=== PATIENT | male | born 1980 | race Hispanic/Latino ===

== ENCOUNTER 2019-05-12 20:29 | Emergency (ER) | payer OTHER ==
[2019-05-12] MEDS ORDERED: NA CHLORIDE 0.9% 1,000 ML ONE (20:55)
[2019-05-12 21:24] LABS: Absolute Lymphocytes (CBC) 2.6 K/uL (0.7-4.9); Basophils % 0.7 % (0-1.3); Lymphocytes % 32.1 % (15.3-44.8); MPV 10.3 fL (7.6-11.3); RBC Red Blood Cell Count 5.29 M/uL (4.33-5.43)
[2019-05-12 22:09] LABS: Urine Blood NEGATIVE (NEG); Urine Glucose NEGATIVE (NEG); Urine Protein NEGATIVE (NEG); Urine Specific Gravity 1.025 (1.005-1.030); Urine pH 5.5 (5.0-7.0)
[2019-05-12 22:12] LABS: Protime INR 1.04
[2019-05-12 22:32] LABS: ALT/SGPT 30 U/L (12-78); Albumin 3.8 g/dL (3.4-5.0); Alkaline Phosphatase 83 U/L (45-117); BUN Blood Urea Nitrogen 10 mg/dL (7-18); Bicarbonate 24 mmol/L (21-32); Bilirubin Direct < 0.1 mg/dL (0-0.2); Bilirubin Total 0.4 mg/dL (0.2-1.0); Glucose Level 146 mg/dL (74-106); NT PRO-BNP 52 pg/mL (<125); Protein, Total 7.8 g/dL (6.4-8.2); Sodium Level 142 mmol/L (136-145); Troponin (Emerg Dept Use Only) < 0.02 ng/mL (0.0-0.045)
[2019-05-12 22:33] LABS: AST/SGOT 19 U/L (15-37)
--- NOTE | 2019-05-12 22:51 | EDPHYS ---
Physician Documentation [facility] Name: Karan Arita Age: 38 yrs Sex: Male : 1980 Arrival Date: 05/12/2019 Time: 20:32 Bed 28 Private MD: ED Physician Bob Carbone HPI: 05/12 21:13 This 38 yrs old Male presents to ER via EMS with complaints of weakness and gerson dizzinrss. 21:13 The patient presents with dizziness, feeling faint, generalized weakness. Onset: The gerson symptoms/episode began/occurred just prior to arrival. Context: occurred at work. Modifying factors: The symptoms are alleviated by nothing, the symptoms are aggravated by nothing. Associated signs and symptoms: Pertinent positives: headache, nausea, near-syncope. Severity of symptoms: At their worst the symptoms were mild moderate in the emergency department the symptoms have improved moderately. Patient's baseline: Neuro: alert and fully oriented. Historical: - Allergies: 21:27 No Known Allergies; rv - Home Meds: 21:27 TRULICITY [Active]; rv - PMHx: 21:27 None; rv - PSHx: 21:27 C4-C6 FUSION; ROTATOR CUFF REPAIR; NECK SURGERY; Tonsillectomy; rv - Immunization history:: Adult Immunizations up to date. - Social history:: Smoking status: Patient/guardian denies using tobacco, never smoked. - Family history:: not pertinent. - Ebola Screening: : No symptoms or risks identified at this time. ROS: 21:13 Constitutional: Negative for fever, chills, and weight loss, Eyes: Negative for injury, gerson pain, redness, and discharge, ENT: Negative for injury, pain, and discharge, Neck: Negative for injury, pain, and swelling, Cardiovascular: Negative for chest pain, palpitations, and edema, Respiratory: Negative for shortness of breath, cough, wheezing, and pleuritic chest pain, Abdomen/GI: Negative for abdominal pain, nausea, vomiting, diarrhea, and constipation, Back: Negative for injury and pain, : Negative for injury, bleeding, discharge, and swelling, MS/Extremity: Negative for injury and deformity, Skin: Negative for injury, rash, and discoloration, Psych: Negative for depression, anxiety, suicide ideation, homicidal ideation, and hallucinations, Allergy/Immunology: Negative for hives, rash, and allergies, Endocrine: Negative for neck swelling, polydipsia, polyuria, polyphagia, and marked weight changes, Hematologic/Lymphatic: Negative for swollen nodes, abnormal bleeding, and unusual bruising. 21:13 Neuro: Positive for dizziness, headache. Exam: 21:13 Constitutional: This is a well developed, well nourished patient who is awake, alert, gerson and in no acute distress. Head/Face: Normocephalic, atraumatic. Eyes: Pupils equal round and reactive to light, extra-ocular motions intact. Lids and lashes normal. Conjunctiva and sclera are non-icteric and not injected. Cornea within normal limits. Periorbital areas with no swelling, redness, or edema. ENT: Nares patent. No nasal discharge, no septal abnormalities noted. Tympanic membranes are normal and external auditory canals are clear. Oropharynx with no redness, swelling, or masses, exudates, or evidence of obstruction, uvula midline. Mucous membranes moist. Neck: Trachea midline, no thyromegaly or masses palpated, and no cervical lymphadenopathy. Supple, full range of motion without nuchal rigidity, or vertebral point tenderness. No Meningismus. Chest/axilla: Normal chest wall appearance and motion. Nontender with no deformity. No lesions are appreciated. Cardiovascular: Regular rate and rhythm with a normal S1 and S2. No gallops, murmurs, or rubs. Normal PMI, no JVD. No pulse deficits. Respiratory: Lungs have equal breath sounds bilaterally, clear to auscultation and percussion. No rales, rhonchi or wheezes noted. No increased work of breathing, no retractions or nasal flaring. Abdomen/GI: Soft, non-tender, with normal bowel sounds. No distension or tympany. No guarding or rebound. No evidence of tenderness throughout. Back: No spinal tenderness. No costovertebral tenderness. Full range of motion. Male : Normal genitalia with no discharge or lesions. Skin: Warm, dry with normal turgor. Normal color with no rashes, no lesions, and no evidence of cellulitis. MS/ Extremity: Pulses equal, no cyanosis. Neurovascular intact. Full, normal range of motion. Neuro: Awake and alert, GCS 15, oriented to person, place, time, and situation. Cranial nerves II-XII grossly intact. Motor strength 5/5 in all extremities. Sensory grossly intact. Cerebellar exam normal. Normal gait. Psych: Awake, alert, with orientation to person, place and time. Behavior, mood, and affect are within normal limits. 22:33 Musculoskeletal/extremity: DVT Exam: No signs of deep vein thrombosis. no pain, no gerson swelling, no tenderness, negative Homans' sign noted on exam, no appreciated bluish discoloration, no erythema, no increased warmth. 22:33 Neck: ROM/movement: is normal, no acute changes, Meningeal signs: are not present, [facility] Kernig's sign is negative, Brudzinski's sign is negative. Vital Signs: 20:37 BP 135 / 109; Pulse 100; Resp 17; Temp 98.7; Pulse Ox 100% on R/A; Weight 106.14 kg; rv Height 5 ft. 10 in. (177.80 cm); 22:04 BP 116 / 79; Pulse 98; Resp 18; Pulse Ox 100% on R/A; mg2 22:59 BP 122 / 99; Pulse 93; Resp 18; Pulse Ox 100% on R/A; mg2 23:54 BP 125 / 95; Pulse 89; Resp 15; Pulse Ox 100% on R/A; rv 20:37 Body Mass Index 33.58 (106.14 kg, 177.80 cm) rv MDM: 20:48 Patient medically screened. [facility] 22:33 Data reviewed: vital signs, nurses notes, lab test result(s), EKG, radiologic studies, [facility] CT scan, plain films. 05/12 20:50 Order name: Basic Metabolic Panel; Complete Time: 22:48 [facility] 05/12 20:50 Order name: CBC with Diff; Complete Time: 22:15 [facility] 05/12 20:50 Order name: LFT's; Complete Time: 22:48 [facility] 05/12 20:50 Order name: Magnesium; Complete Time: 22:48 [facility] 05/12 20:50 Order name: NT PRO-BNP; Complete Time: 22:48 [facility] 05/12 20:50 Order name: PT-INR; Complete Time: 22:32 [facility] 05/12 20:50 Order name: Troponin (emerg Dept Use Only); Complete Time: 22:48 [facility] 05/12 20:50 Order name: XRAY Chest (1 view); Complete Time: 23:43 [facility] 05/12 20:50 Order name: EKG; Complete Time: 21:22 [facility] 05/12 20:50 Order name: Cardiac monitoring; Complete Time: 20:52 [facility] 05/12 20:50 Order name: CT Head Brain wo Cont [facility] 05/12 22:03 Order name: Urine Dipstick--Ancillary (enter results); Complete Time: 22:15 or 05/12 20:50 Order name: EKG - Nurse/Tech; Complete Time: 20:52 [facility] 05/12 20:50 Order name: IV Saline Lock; Complete Time: 22:03 [facility] 05/12 20:50 Order name: Labs collected and sent; Complete Time: 20:52 [facility] 05/12 20:50 Order name: O2 Per Protocol; Complete Time: 20:53 [facility] 05/12 20:50 Order name: O2 Sat Monitoring; Complete Time: 20:53 [facility] 05/12 20:50 Order name: Urine Dipstick-Ancillary (obtain specimen); Complete Time: 22:03 [facility] Administered Medications: 21:03 Drug: NS 0.9% 500 ml Route: IV; Rate: bolus; Site: right antecubital; mg2 22:59 Follow up: Response: No adverse reaction; IV Status: Completed infusion; IV Intake: mg2 500ml 22:03 Drug: NS 0.9% 1000 ml Route: IV; Rate: 125 ml/hr; Site: right antecubital; mg2 Point of Care Testing: Blood Glucose: 20:44 Blood Glucose: 164 mg/dL; mg2 Ranges: Critical Glucose Levels:Adult <50 mg/dl or >400 mg/dl <40 mg/dl or >180 mg/dl Disposition: 05/12/19 22:50 Discharged to Home. Impression: Dizziness and giddiness, Weakness, Type 1 diabetes mellitus. - Condition is Stable. - Discharge Instructions: Type 2 Diabetes Mellitus, Diagnosis, Adult, Dizziness, Weakness, Weakness, [id number], Type 2 Diabetes Mellitus, Diagnosis, Adult, [id number], Dizziness, [id number]-mh-[id number], Type 2 Diabetes Mellitus, Self Care, Adult, Type 2 Diabetes Mellitus, Self Care, Adult, Ysmf-[id number]-[id number]. - Medication Reconciliation Form, Thank You Letter, Antibiotic Education, Prescription Opioid Use form. - Follow up: Private Physician; When: 1 - 2 days; Reason: Recheck today's complaints, Continuance of care, Re-evaluation by your physician. - Problem is new. - Symptoms have improved. Signatures: Dispatcher [employer] EDBob Gaviria MD MD cha Gardose, Michele, RN RN Darius Hudson RN RN rv Corrections: (The following items were deleted from the chart) 23:54 22:50 05/12/2019 22:50 Discharged to Home. Impression: Dizziness and giddiness; rv Weakness; Type 1 diabetes mellitus. Condition is Stable. Discharge Instructions: Type 2 Diabetes Mellitus, Diagnosis, Adult, Dizziness, Weakness, Weakness, Pmxt-[id number], Type 2 Diabetes Mellitus, Diagnosis, Adult, Xlmt-mg-Cpxg, Dizziness, Lnwe-nc-Wyap, Type 2 Diabetes Mellitus, Self Care, Adult, Type 2 Diabetes Mellitus, Self Care, Adult, Piwv-ta-Kper. Forms are Medication Reconciliation Form, Thank You Letter, Antibiotic Education, Prescription Opioid Use. Follow up: Private Physician; When: 1 - 2 days; Reason: Recheck today's complaints, Continuance of care, Re-evaluation by your physician. Problem is new. Symptoms have improved. gerson
--- NOTE | 2019-05-12 22:51 | ER ---
Nurse's Notes [facility] Name: Karan Arita Age: 38 yrs Sex: Male : 1980 Arrival Date: 05/12/2019 Time: 20:32 Bed 28 Private MD: Diagnosis: Dizziness and giddiness;Weakness;Type 1 diabetes mellitus Presentation: 05/12 20:34 Presenting complaint: EMS states: PATIENT FELT DIZZY SINCE 330 PM TODAY. AFTER TAKING A rv SHOWER, FELT DIZZY AND HAD TUNNEL VISION. Transition of care: patient was not received from another setting of care. Onset of symptoms was May 12, 2019 at 15:30. Risk Assessment: Do you want to hurt yourself or someone else? Patient reports no desire to harm self or others. Initial Sepsis Screen: Does the patient meet any 2 criteria? No. Patient's initial sepsis screen is negative. Does the patient have a suspected source of infection? No. Patient's initial sepsis screen is negative. Care prior to arrival: None. 20:34 Method Of Arrival: EMS: [facility] rv 20:34 Acuity: JAMES 3 rv Triage Assessment: 21:27 General: Appears in no apparent distress. comfortable, Behavior is calm, cooperative. rv Pain: Denies pain. Historical: - Allergies: 21:27 No Known Allergies; rv - Home Meds: 21:27 TRULICITY [Active]; rv - PMHx: 21:27 None; rv - PSHx: 21:27 C4-C6 FUSION; ROTATOR CUFF REPAIR; NECK SURGERY; Tonsillectomy; rv - Immunization history:: Adult Immunizations up to date. - Social history:: Smoking status: Patient/guardian denies using tobacco, never smoked. - Family history:: not pertinent. - Ebola Screening: : No symptoms or risks identified at this time. Screenin:08 Abuse screen: Denies threats or abuse. Denies injuries from another. Nutritional mg2 screening: No deficits noted. Tuberculosis screening: No symptoms or risk factors identified. Fall Risk IV access (20 points). Assessment: 21:27 General: Appears in no apparent distress. comfortable, Behavior is calm, cooperative. rv Pain: Denies pain. Neuro: Level of Consciousness is awake, alert, obeys commands, Oriented to person, place, time, situation, Reports dizziness. Cardiovascular: Patient's skin is warm and dry. Respiratory: Airway is patent. GI: No signs and/or symptoms were reported involving the gastrointestinal system. : No signs and/or symptoms were reported regarding the genitourinary system. EENT: No signs and/or symptoms were reported regarding the EENT system. Derm: Skin is intact. Musculoskeletal: No signs and/or symptoms reported regarding the musculoskeletal system. 22:06 Reassessment: Patient appears in no apparent distress at this time. Patient and/or mg2 family updated on plan of care and expected duration. Pain level reassessed. Patient is alert, oriented x 3, equal unlabored respirations, skin warm/dry/pink. 23:06 Reassessment: patient up for discharge after ct result is back and is negative. mg2 Vital Signs: 20:37 BP 135 / 109; Pulse 100; Resp 17; Temp 98.7; Pulse Ox 100% on R/A; Weight 106.14 kg; rv Height 5 ft. 10 in. (177.80 cm); 22:04 BP 116 / 79; Pulse 98; Resp 18; Pulse Ox 100% on R/A; mg2 22:59 BP 122 / 99; Pulse 93; Resp 18; Pulse Ox 100% on R/A; mg2 23:54 BP 125 / 95; Pulse 89; Resp 15; Pulse Ox 100% on R/A; rv 20:37 Body Mass Index 33.58 (106.14 kg, 177.80 cm) rv ED Course: 20:32 Patient arrived in ED. mg2 20:34 Darius Guillen, ARASH is Primary Nurse. rv 20:37 Triage completed. rv 20:47 Bob Carbone MD is Attending Physician. gerson 21:03 No provider procedures requiring assistance completed. Inserted saline lock: 22 gauge mg2 in right antecubital area, using aseptic technique. Blood collected. 21:08 Patient has correct armband on for positive identification. mg2 21:29 Patient placed in the treatment room, on a stretcher, on pulse oximetry, Patient rv notified of wait time. 21:36 XRAY Chest (1 view) In Process Unspecified. EDMS 21:51 CT completed. Patient tolerated procedure well. Patient moved to CT via stretcher. Patient moved back from CT. 21:52 CT Head Brain wo Cont In Process Unspecified. EDMS 23:53 IV discontinued, intact, bleeding controlled, No redness/swelling at site. Pressure rv dressing applied. Administered Medications: 21:03 Drug: NS 0.9% 500 ml Route: IV; Rate: bolus; Site: right antecubital; mg2 22:59 Follow up: Response: No adverse reaction; IV Status: Completed infusion; IV Intake: mg2 500ml 22:03 Drug: NS 0.9% 1000 ml Route: IV; Rate: 125 ml/hr; Site: right antecubital; mg2 Point of Care Testing: Blood Glucose: 20:44 Blood Glucose: 164 mg/dL; mg2 Ranges: Intake: 22:59 IV: 500ml; Total: 500ml. mg2 Outcome: 22:50 Discharge ordered by . gerson 23:53 Discharged to home ambulatory, with family. rv 23:53 Condition: good 23:53 Discharge instructions given to patient, Instructed on discharge instructions, follow up and referral plans. Demonstrated understanding of instructions, follow-up care. 23:54 Patient left the ED. rv Signatures: Dispatcher [employer] EDMS Bob Carbone MD MD cha Hagler, Ervin eh Gardose, Michele, ARASH RN mg2 Darius Guillen RN RN rv Corrections: (The following items were deleted from the chart) 22:06 22:04 BP 135 / 101; Pulse 98bpm; Resp 18bpm; Pulse Ox 100% RA; mg2 mg2
--- NOTE | 2019-05-12 23:01 | RAD REPORT ---
EXAM DESCRIPTION: RAD - Chest Single View - 05/12/2019 9:21 pm CLINICAL HISTORY: COUGH Chest pain. COMPARISON: Chest Pa And Lat (2 Views) dated 01/23/2018 FINDINGS: Portable technique limits examination quality. The lungs are grossly clear. The heart is upper limit of normal in size. No displaced fractures. IMPRESSION: No acute intrathoracic process suspected.
[2019-05-13 00:30] VITALS: TEMP 98.7; O2SAT 100
[2019-05-13 00:34] VITALS: BP 125/95
--- NOTE | 2019-05-13 11:09 | EKG ---
Test Date: 2019-05-12 Test Time: 20:35:02 [address] Engineer: GINA MEASUREMENT RESULTS: Intervals: Rate: 102 MI: 136 QRSD: 86 QT: 336 QTc: 437 [place]: P: 32 MI: 136 QRS: 28 T: 48 INTERPRETIVE STATEMENTS: Sinus tachycardia Otherwise normal ECG Compared to ECG 03/02/2015 11:35:06 Sinus rhythm no longer present Electronically Signed On 05-13-19 11:06:19 CDT by Saurabh Hayes
--- NOTE | 2019-05-14 14:01 | RAD REPORT ---
EXAM DESCRIPTION: Head Brain Wo Cont CLINICAL HISTORY: 38 years Male, DIZZINESS TECHNIQUE: 5 mm axial images were obtained along with 3 mm reformatted coronal and sagittal images. This exam was performed according to our departmental dose-optimization program, which includes autom ated exposure control, adjustment of the mA and/or kV according to patient size and/or use of iterati ve reconstruction technique. COMPARISON: None. FINDINGS: No acute abnormal extracerebral fluid collections are demonstrated. The cortical sulci, ventricles, and cisterns are within normal limits. There are no areas of altered attenuation identified to suggest acute hemorrhage, infarction, or mass lesion. The visualized portions of the paranasal sinuses and mastoid air cells are clear. IMPRESSION: 1. Normal study. Electronically signed by: Berny Dunne MD 05/12/2019 9:45 PM CDT Due to temporary technical issues with the PACS/Fluency reporting system, reports are being signed by the in house radiologist as a courtesy to ensure prompt reporting. The interpreting radiologist is f ully responsible for the content of the report.
== END 2019-05-12 23:54 | disposition home or self-care (01) ==
LOC: ER 20:29
DX: R53.1 Weakness (principal); E10.9 Type 1 diabetes mellitus without complications
CPT/HCPCS: 96361; 93005; 85025; 80048; 36415; 83735; 85610; 82962; 80076; 81003; 84484; 83880; 70450; 71045; 96360; 99285; J7030

== ENCOUNTER 2023-04-05 12:03 | Emergency (ER) | payer OTHER ==
--- OUTSIDE RECORDS SUMMARY | 2023-04-05 12:07 | XMS REPORT | Continuity of Care Document ---
:1980 Author Organization [facility] t Address [address] [place] [address] [address] [place] [address] Care Team Providers Name Role Phone Jennifer Galeano NP Primary Care Physician Krysta Attending Clinician Unavailable Woo Gutierrez Attending Clinician Unavailable Woo Gutierrez Attending Clinician [phone] Krysta Admitting Clinician Unavailable KNOW, DOES_NOT Admitting Clinician Unavailable Payers Payer Name Policy Type Policy Number Effective Date Expiration Date Marisela BOURGEOIS (POS) [id number] 2022 00:00:00 Problems Condition Condition Condition Status Onset Resolution Last Treating Co mments Source Name Details Category Date Date Treatment Clinician Date Tendonitis Tendonitis Problem Active A zalea of right of Right 1-04 Orthop e shoulder Shoulder 00:00: dic 00 Sports Medicin e Adhesive Adhesive Problem Active 2021-09 Azale a capsulitis Capsulitis 1-28 Or thope of right of Right 00:00: dic shoulder Shoulder 00 Sports Medicin e Full Full Problem Active Monae thickness Thickness 7-18 Orth ope rotator Rotator 00:00: dic cuff tear Cuff Tear 00 Spor ts Medicin e Arthritis Arthritis Problem Active Aza marla of of 5-10 Orthope acromiocla Acromiocla 00:00: di c vicular vicular 00 Sports joint Joint Medicin e Biceps Biceps Problem Active Monae tendinitis Tendinitis 5-10 Or thope 00:00: dic 00 Sports Medicin e Partial Partial Problem Active Monae thickness Thickness 5-10 Orth ope rotator Rotator 00:00: dic cuff tear Cuff Tear 00 Spor ts Medicin e Allergies, Adverse Reactions, Alerts Allergy Allergy Status Severity Reaction(s) Onset Inactive Treating Comm ents Source Name Type Date Date Clinician No Known DA Active [facility] [place] [facility] 00:[facility]: [facility] 00 dic [facility] No Known DA Active [facility] [place] [facility] 00:00: Orthope s 00 dic [facility]ospita [facility] No Known DA Active [facility] 7[facility]06 [place] [facility]ie 00:00: Orthope s 00 dic Hospita l Family History Family Member Diagnosis Comments Start Date Stop Date Source Natural father Diabetes [facility] Natural mother Diabetes [facility] Social History Social Habit Start Date Stop Date Quantity Comments Source History [facility] St[facility] Drinks Hospit al History [facility] Gender identity [facility] Sexual orientation [facility] History SDOH 2019-07-20 2019-07-20 1 [facility] Alcohol Frequency 00:00:00 00:00:00 Hospita l Alcohol intake 2019-07-20 2019-07-20 Lifetime [facility] 00:00:00 00:00:00 non-drinker Hospital (finding) History of Social 2019-07-20 2019-07-[address] function 00:00:00 00:00:00 Hospital Tobacco use and 2019-06-21 2019-06-21 Smokeless Confucianist exposure 00:00:00 00:00:00 tobacco non-user Hospital Sex Assigned At [birth year] [facility] 00:00:00 00:00:00 Hospital Smoking Status Start Date Stop Date Source Never Smoker [facility] Medications Ordered Filled Start Stop Current Ordering Indication Dosage Frequency Signature Comments Components Source Medication Medication Date Date Medication? Clinician (SIG) Name Name dulaglutide 2018-09 Yes [facility] (TRULICITY) 09-19 st 0.75 mg/0.5 10:20: Hospit a mL pen 00 l injector linagliptin 2018-09 Yes [facility] -metformin 09-19 ([place] 10:20: Hospit a ) 2.5-1,000 00 l mg tablet dulaglutide 2018-09 Yes [facility] (TRULICITY) 1-19 st 0.75 mg/0.5 10:20: Hospit a mL pen 00 l injector linagliptin 2018-09 Yes [facility] -metformin -19 st ([place] 10:20: Hospit a ) 2.5-1,000 00 l mg tablet HYDROcodone Yes Take 1 Meth roxann -acetaminop 9-[address] (NORCO) 00:00: every 12 Ho spita 7.5-325 mg 00 hours by l per tablet oral route for 30 days. HYDROcodone Yes Take 1 Meth roxann -acetaminop 9-[address] hen (NORCO) 00:00: every 12 Ho spita 7.5-325 mg 00 hours by l per tablet oral route for 30 days. DULoxetine Yes 30mg QD Take 30 mg M ethodi (CYMBALTA) 9-[address] 30 MG 00:00: daily. Hospita capsule 00 l DULoxetine Yes 30mg QD Take 30 mg M ethodi (CYMBALTA) 9-[address] 30 MG 00:00: daily. Hospita capsule 00 l tiZANidine Yes 4mg QD Take 4 mg Me thodi (ZANAFLEX) 8-[address] 4 MG tablet 00:00: daily. Hosp jude 00 l tiZANidine Yes 4mg QD Take 4 mg Me thodi (ZANAFLEX) 8-[address] 4 MG tablet 00:00: daily. Hosp jude 00 l ONETOUCH Yes USE TO [facility] ULTRA BLUE 8-[address] TEST STRIP 00:00: BLOOD Hospit a strip test 00 SUGAR l strips DAILY ONETOUCH Yes USE TO [facility] ULTRA BLUE 8-[address] TEST STRIP 00:00: BLOOD Hospit a strip test 00 SUGAR l strips DAILY tramadol tramadol No tramadol Aza marla 37.5 37.5 37.5 Orthope mg-acetamin mg-acetamin mg-acetami dic ophen 325 ophen 325 nophen 325 Sports mg tablet mg tablet mg tablet Medicin Take 1 Take 1 Take 1 e tablet by tablet by tablet by mouth every mouth every mouth 4-6 hours 4-6 hours every 4-6 as needed as needed hours as for pain for pain needed for pain Trulicity Trulicity No Trulicity Monae 0.75 mg/0.5 0.75 mg/0.5 0.75 O rthope mL mL mg/0.5 mL dic subcutaneou subcutaneou subcutaneo Sports s pen s pen us pen Medicin injector injector injector e INJECT 0.75 INJECT 0.75 INJECT MG UNDER MG UNDER 0.75 MG THE SKIN THE SKIN UNDER THE PER WEEK. PER WEEK. SKIN PER WEEK. bromphenira bromphenira No bromphenir Monae mine-pseudo mine-pseudo amine-pseu Orthope ephedrine-D ephedrine-D doephedrin dic M 2 mg-30 M 2 mg-30 e-DM 2 Spo rts mg-10 mg/5 mg-10 mg/5 mg-30 Me dicin mL oral mL oral mg-10 mg/5 e syrup TAKE syrup TAKE mL oral 10 ML BY 10 ML BY syrup TAKE MOUTH 3 MOUTH 3 10 ML BY (THREE) (THREE) MOUTH 3 TIMES A DAY TIMES A DAY (THREE) IF NEEDED IF NEEDED TIMES A FOR FOR DAY IF CONGESTION CONGESTION NEEDED FOR OR COUGH. OR COUGH. CONGESTION OR COUGH. Celebrex Celebrex No 1capsul Celebrex Monae 200 mg 200 mg e(s) 200 mg Orthope capsule capsule capsule dic Take 1 Take 1 Take 1 Sports capsule by capsule by capsule by Medicin oral route oral route oral route e in the in the in the morning. morning. morning. cephalexin cephalexin No cephalexin Monae 500 mg 500 mg 500 mg [facility] capsule capsule capsule dic TAKE 1 TAKE 1 TAKE 1 Sports CAPSULE BY CAPSULE BY CAPSULE BY Medicin MOUTH TWICE MOUTH TWICE MOUTH e A DAY FOR A DAY FOR TWICE A 10 DAYS 10 DAYS DAY FOR 10 DAYS cyclobenzap cyclobenzap No cyclobenza Monae rine 10 mg rine 10 mg aster 10 Orthope tablet TAKE tablet TAKE mg tablet dic 1 TABLET BY 1 TABLET BY TAKE 1 Sports MOUTH EVERY MOUTH EVERY TABLET BY Medicin 8 HOURS 8 HOURS MOUTH e NEEDED FOR NEEDED FOR EVERY 8 PAIN PAIN HOURS NEEDED FOR PAIN diazepam 10 diazepam 10 No diazepam Monae mg tablet mg tablet 10 mg Orth ope TAKE 1 TAKE 1 tablet dic TABLET BY TABLET BY TAKE 1 Spo rts MOUTH 30 MOUTH 30 TABLET BY Me dicin MINS PRIOR MINS PRIOR MOUTH 30 e TO MRI TO MRI MINS PRIOR TO MRI diclofenac diclofenac No diclofenac Monae potassium potassium potassium Orthope 50 mg 50 mg 50 mg dic tablet TAKE tablet TAKE tablet Sports 1 TABLET BY 1 TABLET BY TAKE 1 Medicin MOUTH EVERY MOUTH EVERY TABLET BY e 8 HOURS 8 HOURS MOUTH WITH MEALS WITH MEALS EVERY 8 HOURS WITH MEALS etodolac etodolac No etodolac Aza marla 500 mg 500 mg 500 mg Orthope tablet TAKE tablet TAKE tablet dic 1 TABLET BY 1 TABLET BY TAKE 1 Sports MOUTH EVERY MOUTH EVERY TABLET BY Medicin TWELVE TWELVE MOUTH e HOURS HOURS EVERY NEEDED FOR NEEDED FOR TWELVE PAIN PAIN HOURS NEEDED FOR PAIN hydrocodone hydrocodone No hydrocodon Monae 5 5 e 5 Orthope mg-acetamin mg-acetamin mg-acetami dic ophen 325 ophen 325 nophen 325 Sports mg tablet mg tablet mg tablet Medicin TAKE 1 TAKE 1 TAKE 1 e TABLET BY TABLET BY TABLET BY MOUTH EVERY MOUTH EVERY MOUTH 6 HOURS 6 HOURS EVERY 6 NEEDED NEEDED HOURS NEEDED hydrocodone hydrocodone No hydrocodon Monae 7.5 7.5 e 7.5 Orthope mg-acetamin mg-acetamin mg-acetami dic ophen 325 ophen 325 nophen 325 Sports mg tablet mg tablet mg tablet Medicin TAKE 1 TAKE 1 TAKE 1 e TABLET BY TABLET BY TABLET BY MOUTH EVERY MOUTH EVERY MOUTH 12 HOURS 12 HOURS EVERY 12 NEEDED FOR NEEDED FOR HOURS PAIN PAIN NEEDED FOR PAIN Janumet 50 Janumet 50 No Janumet 50 Monae mg-1,000 mg mg-1,000 mg mg-1,000 Orthope tablet TAKE tablet TAKE mg tablet dic 1 TABLET BY 1 TABLET BY TAKE 1 Sports MOUTH IN MOUTH IN TABLET BY dicin THE MORNING THE MORNING MOUTH IN e AND 1 AND 1 THE TABLET IN TABLET IN MORNING THE THE AND 1 EVENING. EVENING. TABLET IN TAKE WITH TAKE WITH THE MEALS. MEALS. EVENING. TAKE WITH MEALS. meloxicam meloxicam No meloxicam Monae 7.5 mg 7.5 mg 7.5 mg Orthope tablet TAKE tablet TAKE tablet dic 1 TABLET BY 1 TABLET BY TAKE 1 Sports MOUTH EVERY MOUTH EVERY TABLET BY Medicin DAY WITH DAY WITH MOUTH e FOOD FOOD EVERY DAY WITH FOOD methocarbam methocarbam No methocarba Monae ol 750 mg ol 750 mg mol 750 mg [facility] tablet TAKE tablet TAKE tablet dic 1 TABLET BY 1 TABLET BY TAKE 1 Sports MOUTH EVERY MOUTH EVERY TABLET BY Medicin TWELVE TWELVE MOUTH e HOURS HOURS EVERY NEEDED FOR NEEDED FOR TWELVE PAIN PAIN HOURS NEEDED FOR PAIN methylpredn methylpredn No methylpred Monae isolone 4 isolone 4 nisolone 4 Orthope mg tablets mg tablets mg tablets dic in a dose in a dose in a dose Sports pack TAKE 6 pack TAKE 6 pack TAKE Medicin TABLETS ON TABLETS ON 6 TABLETS e DAY 1 DAY 1 ON DAY 1 DIRECTED ON DIRECTED ON PACKAGE AND PACKAGE AND DIRECTED DECREASE BY DECREASE BY ON PACKAGE 1 TAB EACH 1 TAB EACH AND DAY FOR A DAY FOR A DECREASE TOTAL OF 6 TOTAL OF 6 BY 1 TAB DAYS DAYS EACH DAY FOR A TOTAL OF 6 DAYS prednisone prednisone No prednisone Monae 10 mg 10 mg 10 mg Orthope tablet Take tablet Take tablet dic 1 tablet 3 1 tablet 3 Take 1 S ports times a day times a day tablet 3 Medicin by oral by oral times a e route. route. day by oral route. promethazin promethazin No promethazi Monae e 25 mg e 25 mg ne 25 mg Ortho pe tablet Take tablet Take tablet dic 1 tablet 1 tablet Take 1 Sport s every 6-8 every 6-8 tablet Med icin hours as hours as every 6-8 e needed for needed for hours as nausea and nausea and needed for vomiting vomiting nausea and vomiting tizanidine tizanidine No tizanidine Monae 4 mg tablet 4 mg tablet 4 mg O rthope Take 1 Take 1 tablet dic tablet(s) tablet(s) Take 1 Spo rts EVERY 8 EVERY 8 tablet(s) Medi johnie HOURS by HOURS by EVERY 8 e oral route oral route HOURS by as needed as needed oral route for muscle for muscle as needed spasms spasms for muscle spasms tramadol tramadol No tramadol Aza marla 37.5 37.5 37.5 Orthope mg-acetamin mg-acetamin mg-acetami dic ophen 325 ophen 325 nophen 325 Sports mg tablet mg tablet mg tablet Medicin Take 1 Take 1 Take 1 e tablet by tablet by tablet by mouth every mouth every mouth 4-6 hours 4-6 hours every 4-6 as needed as needed hours as for pain for pain needed for pain Trulicity Trulicity No Trulicity Monae 0.75 mg/0.5 0.75 mg/0.5 0.75 O rthope mL mL mg/0.5 mL dic subcutaneou subcutaneou subcutaneo Sports s pen s pen us pen Medicin injector injector injector e INJECT 0.75 INJECT 0.75 INJECT MG UNDER MG UNDER 0.75 MG THE SKIN THE SKIN UNDER THE PER WEEK. PER WEEK. SKIN PER WEEK. bromphenira bromphenira No bromphenir Monae mine-pseudo mine-pseudo amine-pseu Orthope ephedrine-D ephedrine-D doephedrin dic M 2 mg-30 M 2 mg-30 e-DM 2 Spo rts mg-10 mg/5 mg-10 mg/5 mg-30 Me dicin mL oral mL oral mg-10 mg/5 e syrup TAKE syrup TAKE mL oral 10 ML BY 10 ML BY syrup TAKE MOUTH 3 MOUTH 3 10 ML BY (THREE) (THREE) MOUTH 3 TIMES A DAY TIMES A DAY (THREE) IF NEEDED IF NEEDED TIMES A FOR FOR DAY IF CONGESTION CONGESTION NEEDED FOR OR COUGH. OR COUGH. CONGESTION OR COUGH. celecoxib celecoxib No celecoxib Monae 200 mg 200 mg 200 mg [facility] capsule capsule capsule dic TAKE 1 TAKE 1 TAKE 1 Sports CAPSULE BY CAPSULE BY CAPSULE BY Medicin ORAL ROUTE ORAL ROUTE ORAL ROUTE e IN THE IN THE IN THE MORNING. MORNING. MORNING. cephalexin cephalexin No cephalexin Monae 500 mg 500 mg 500 mg [facility] capsule capsule capsule dic TAKE 1 TAKE 1 TAKE 1 Sports CAPSULE BY CAPSULE BY CAPSULE BY Medicin MOUTH TWICE MOUTH TWICE MOUTH e A DAY FOR A DAY FOR TWICE A 10 DAYS 10 DAYS DAY FOR 10 DAYS cyclobenzap cyclobenzap No cyclobenza Monae rine 10 mg rine 10 mg aster 10 [facility] tablet TAKE tablet TAKE mg tablet dic 1 TABLET BY 1 TABLET BY TAKE 1 Sports MOUTH EVERY MOUTH EVERY TABLET BY Medicin 8 HOURS 8 HOURS MOUTH e NEEDED FOR NEEDED FOR EVERY 8 PAIN PAIN HOURS NEEDED FOR PAIN diazepam 10 diazepam 10 No diazepam Monae mg tablet mg tablet 10 mg Orth ope TAKE 1 TAKE 1 tablet dic TABLET BY TABLET BY TAKE 1 Spo rts MOUTH 30 MOUTH 30 TABLET BY Me dicin MINS PRIOR MINS PRIOR MOUTH 30 e TO MRI TO MRI MINS PRIOR TO MRI diclofenac diclofenac No diclofenac Monae 1 % topical 1 % topical 1 % O rthope gel APPLY 2 gel APPLY 2 topical dic GRAMS TO GRAMS TO gel APPLY Sp orts THE THE 2 GRAMS TO Medicin AFFECTED AFFECTED THE e AREA(S) BY AREA(S) BY AFFECTED TOPICAL TOPICAL AREA(S) BY ROUTE 4 ROUTE 4 TOPICAL TIMES PER TIMES PER ROUTE 4 DAY DAY TIMES PER DAY diclofenac diclofenac No diclofenac Monae potassium potassium potassium Orthope 50 mg 50 mg 50 mg dic tablet TAKE tablet TAKE tablet Sports 1 TABLET BY 1 TABLET BY TAKE 1 Medicin MOUTH EVERY MOUTH EVERY TABLET BY e 8 HOURS 8 HOURS MOUTH WITH MEALS WITH MEALS EVERY 8 HOURS WITH MEALS etodolac etodolac No etodolac Aza marla 500 mg 500 mg 500 mg [facility] tablet TAKE tablet TAKE tablet dic 1 TABLET BY 1 TABLET BY TAKE 1 Sports MOUTH EVERY MOUTH EVERY TABLET BY Medicin TWELVE TWELVE MOUTH e HOURS HOURS EVERY NEEDED FOR NEEDED FOR TWELVE PAIN PAIN HOURS NEEDED FOR PAIN hydrocodone hydrocodone No hydrocodon Monae 5 5 e 5 Orthope mg-acetamin mg-acetamin mg-acetami dic ophen 325 ophen 325 nophen 325 Sports mg tablet mg tablet mg tablet Medicin TAKE 1 TAKE 1 TAKE 1 e TABLET BY TABLET BY TABLET BY MOUTH EVERY MOUTH EVERY MOUTH 6 HOURS 6 HOURS EVERY 6 NEEDED NEEDED HOURS NEEDED hydrocodone hydrocodone No hydrocodon Monae 7.5 7.5 e 7.5 Orthope mg-acetamin mg-acetamin mg-acetami dic ophen 325 ophen 325 nophen 325 Sports mg tablet mg tablet mg tablet Medicin TAKE 1 TAKE 1 TAKE 1 e TABLET BY TABLET BY TABLET BY MOUTH EVERY MOUTH EVERY MOUTH 12 HOURS 12 HOURS EVERY 12 NEEDED FOR NEEDED FOR HOURS PAIN PAIN NEEDED FOR PAIN Janumet 50 Janumet 50 No Janumet 50 Monae mg-1,000 mg mg-1,000 mg mg-1,000 [facility]ope tablet TAKE tablet TAKE mg tablet dic 1 TABLET BY 1 TABLET BY TAKE 1 Sports MOUTH IN MOUTH IN TABLET BY Tx dicin THE MORNING THE MORNING MOUTH IN e AND 1 AND 1 THE TABLET IN TABLET IN MORNING THE THE AND 1 EVENING. EVENING. TABLET IN TAKE WITH TAKE WITH THE MEALS. MEALS. EVENING. TAKE WITH MEALS. meloxicam meloxicam No meloxicam Monae 7.5 mg 7.5 mg 7.5 mg [facility] tablet TAKE tablet TAKE tablet dic 1 TABLET BY 1 TABLET BY TAKE 1 Sports MOUTH EVERY MOUTH EVERY TABLET BY Medicin DAY WITH DAY WITH MOUTH e FOOD FOOD EVERY DAY WITH FOOD methocarbam methocarbam No methocarba Monae ol 750 mg ol 750 mg mol 750 mg [facility] tablet TAKE tablet TAKE tablet dic 1 TABLET BY 1 TABLET BY TAKE 1 Sports MOUTH EVERY MOUTH EVERY TABLET BY Medicin TWELVE TWELVE MOUTH e HOURS HOURS EVERY NEEDED FOR NEEDED FOR TWELVE PAIN PAIN HOURS NEEDED FOR PAIN methylpredn methylpredn No methylpred Monae isolone 4 isolone 4 nisolone 4 [facility]ope mg tablets mg tablets mg tablets dic in a dose in a dose in a dose Sports pack TAKE 6 pack TAKE 6 pack TAKE Medicin TABLETS ON TABLETS ON 6 TABLETS e DAY 1 DAY 1 ON DAY 1 DIRECTED ON DIRECTED ON PACKAGE AND PACKAGE AND DIRECTED DECREASE BY DECREASE BY ON PACKAGE 1 TAB EACH 1 TAB EACH AND DAY FOR A DAY FOR A DECREASE TOTAL OF 6 TOTAL OF 6 BY 1 TAB DAYS DAYS EACH DAY FOR A TOTAL OF 6 DAYS prednisone prednisone No prednisone Monae 10 mg 10 mg 10 mg [facility] tablet Take tablet Take tablet dic 1 tablet 3 1 tablet 3 Take 1 S ports times a day times a day tablet 3 Medicin by oral by oral times a e route. route. day by oral route. promethazin promethazin No promethazi Monae e 25 mg e 25 mg ne 25 mg Ortho pe tablet Take tablet Take tablet dic 1 tablet 1 tablet Take 1 Sport s every 6-8 every 6-8 tablet Med icin hours as hours as every 6-8 e needed for needed for hours as nausea and nausea and needed for vomiting vomiting nausea and vomiting tizanidine tizanidine No tizanidine Monae 4 mg tablet 4 mg tablet 4 mg O rthope Take 1 Take 1 tablet dic tablet(s) tablet(s) Take 1 Spo rts EVERY 8 EVERY 8 tablet(s) Medi johnie HOURS by HOURS by EVERY 8 e oral route oral route HOURS by as needed as needed oral route for muscle for muscle as needed spasms spasms for muscle spasms tramadol tramadol No tramadol Aza marla 37.5 37.5 37.5 [facility]ope mg-acetamin mg-acetamin mg-acetami dic ophen 325 ophen 325 nophen 325 Sports mg tablet mg tablet mg tablet Medicin Take 1 Take 1 Take 1 e tablet by tablet by tablet by mouth every mouth every mouth 4-6 hours 4-6 hours every 4-6 as needed as needed hours as for pain for pain needed for pain Trulicity Trulicity No Trulicity Monae 0.75 mg/0.5 0.75 mg/0.5 0.75 O rthope mL mL mg/0.5 mL dic subcutaneou subcutaneou subcutaneo Sports s pen s pen us pen Medicin injector injector injector e INJECT 0.75 INJECT 0.75 INJECT MG UNDER MG UNDER 0.75 MG THE SKIN THE SKIN UNDER THE PER WEEK. PER WEEK. SKIN PER WEEK. celecoxib celecoxib No celecoxib Monae 200 mg 200 mg 200 mg [facility] capsule capsule capsule dic TAKE 1 TAKE 1 TAKE 1 Sports CAPSULE BY CAPSULE BY CAPSULE BY Medicin ORAL ROUTE ORAL ROUTE ORAL ROUTE e IN THE IN THE IN THE MORNING. MORNING. MORNING. diclofenac diclofenac No diclofenac Monae 1 % topical 1 % topical 1 % O rthope gel APPLY 2 gel APPLY 2 topical dic GRAMS TO GRAMS TO gel APPLY Sp orts THE THE 2 GRAMS TO Medicin AFFECTED AFFECTED THE e AREA(S) BY AREA(S) BY AFFECTED TOPICAL TOPICAL AREA(S) BY ROUTE 4 ROUTE 4 TOPICAL TIMES PER TIMES PER ROUTE 4 DAY DAY TIMES PER DAY Janumet 50 Janumet 50 No Janumet 50 Monae mg-1,000 mg mg-1,000 mg mg-1,000 [facility] tablet TAKE tablet TAKE mg tablet dic 1 TABLET BY 1 TABLET BY TAKE 1 Sports MOUTH IN MOUTH IN TABLET BY Me dicin THE MORNING THE MORNING MOUTH IN e AND 1 AND 1 THE TABLET IN TABLET IN MORNING THE THE AND 1 EVENING. EVENING. TABLET IN TAKE WITH TAKE WITH THE MEALS. MEALS. EVENING. TAKE WITH MEALS. Trulicity Trulicity No Trulicity Monae 0.75 mg/0.5 0.75 mg/0.5 0.75 O rthope mL mL mg/0.5 mL dic subcutaneou subcutaneou subcutaneo Sports s pen s pen us pen Medicin injector injector injector e INJECT 0.75 INJECT 0.75 INJECT MG UNDER MG UNDER 0.75 MG THE SKIN THE SKIN UNDER THE PER WEEK. PER WEEK. SKIN PER WEEK. celecoxib celecoxib No celecoxib Monae 200 mg 200 mg 200 mg [facility] capsule capsule capsule dic TAKE 1 TAKE 1 TAKE 1 Sports CAPSULE BY CAPSULE BY CAPSULE BY Medicin ORAL ROUTE ORAL ROUTE ORAL ROUTE e IN THE IN THE IN THE MORNING. MORNING. MORNING. diclofenac diclofenac No diclofenac Monae 1 % topical 1 % topical 1 % O rthope gel APPLY 2 gel APPLY 2 topical dic GRAMS TO GRAMS TO gel APPLY Sp orts THE THE 2 GRAMS TO Medicin AFFECTED AFFECTED THE e AREA(S) BY AREA(S) BY AFFECTED TOPICAL TOPICAL AREA(S) BY ROUTE 4 ROUTE 4 TOPICAL TIMES PER TIMES PER ROUTE 4 DAY DAY TIMES PER DAY Janumet 50 Sepumet 50 No Sepumet 50 Monae mg-1,000 mg mg-1,000 mg mg-1,000 [facility] tablet TAKE tablet TAKE mg tablet dic 1 TABLET BY 1 TABLET BY TAKE 1 Sports MOUTH IN MOUTH IN TABLET BY Me dicin THE MORNING THE MORNING MOUTH IN e AND 1 AND 1 THE TABLET IN TABLET IN MORNING THE THE AND 1 EVENING. EVENING. TABLET IN TAKE WITH TAKE WITH THE MEALS. MEALS. EVENING. TAKE WITH MEALS. Trulicity Trulicity No Trulicity Monae 0.75 mg/0.5 0.75 mg/0.5 0.75 O rthope mL mL mg/0.5 mL dic subcutaneou subcutaneou subcutaneo Sports s pen s pen us pen Medicin injector injector injector e INJECT 0.75 INJECT 0.75 INJECT MG UNDER MG UNDER 0.75 MG THE SKIN THE SKIN UNDER THE PER WEEK. PER WEEK. SKIN PER WEEK. Celebrex Celebrex No 1capsul Celebrex Monae 200 mg 200 mg e(s) 200 mg [facility] capsule capsule capsule dic Take 1 Take 1 Take 1 Sports capsule by capsule by capsule by Medicin oral route oral route oral route e in the in the in the morning. morning. morning. diclofenac diclofenac No diclofenac Monae 1 % topical 1 % topical 1 % O rthope gel APPLY 2 gel APPLY 2 topical dic GRAMS TO GRAMS TO gel APPLY Sp orts THE THE 2 GRAMS TO Medicin AFFECTED AFFECTED THE e AREA(S) BY AREA(S) BY AFFECTED TOPICAL TOPICAL AREA(S) BY ROUTE 4 ROUTE 4 TOPICAL TIMES PER TIMES PER ROUTE 4 DAY DAY TIMES PER DAY Janumet 50 Sepumet 50 No Sepumet 50 Monae mg-1,000 mg mg-1,000 mg mg-1,000 [facility] tablet TAKE tablet TAKE mg tablet dic 1 TABLET BY 1 TABLET BY TAKE 1 Sports MOUTH IN MOUTH IN TABLET BY Me dicin THE MORNING THE MORNING MOUTH IN e AND 1 AND 1 THE TABLET IN TABLET IN MORNING THE THE AND 1 EVENING. EVENING. TABLET IN TAKE WITH TAKE WITH THE MEALS. MEALS. EVENING. TAKE WITH MEALS. Trulicity Trulicity No Trulicity Monae 0.75 mg/0.5 0.75 mg/0.5 0.75 O rthope mL mL mg/0.5 mL dic subcutaneou subcutaneou subcutaneo Sports s pen s pen us pen Medicin injector injector injector e INJECT 0.75 INJECT 0.75 INJECT MG UNDER MG UNDER 0.75 MG THE SKIN THE SKIN UNDER THE PER WEEK. PER WEEK. SKIN PER WEEK. Zanaflex 4 Zanaflex 4 No 1 Q6H Zanaflex 4 Monae mg tablet mg tablet mg tablet [facility] Take 1 Take 1 Take 1 dic tablet tablet tablet Sports every 6 every 6 every 6 Medici n hours by hours by hours by e oral route. oral route. oral route. Celebrex Celebrex No 1capsul Q1D Celebrex Monae 400 mg 400 mg e(s) 400 mg [facility] capsule capsule capsule dic Take 1 Take 1 Take 1 Sports capsule capsule capsule Medici n every day every day every day e by oral by oral by oral route. route. route. diclofenac diclofenac No diclofenac Monae 1 % topical 1 % topical 1 % O rthope gel APPLY 2 gel APPLY 2 topical dic GRAMS TO GRAMS TO gel APPLY Sp orts THE THE 2 GRAMS TO Medicin AFFECTED AFFECTED THE e AREA(S) BY AREA(S) BY AFFECTED TOPICAL TOPICAL AREA(S) BY ROUTE 4 ROUTE 4 TOPICAL TIMES PER TIMES PER ROUTE 4 DAY DAY TIMES PER DAY Janumet 50 Janumet 50 No Janumet 50 Monae mg-1,000 mg mg-1,000 mg mg-1,000 [facility] tablet TAKE tablet TAKE mg tablet dic 1 TABLET BY 1 TABLET BY TAKE 1 Sports MOUTH IN MOUTH IN TABLET BY Tx dicin THE MORNING THE MORNING MOUTH IN e AND 1 AND 1 THE TABLET IN TABLET IN MORNING THE THE AND 1 EVENING. EVENING. TABLET IN TAKE WITH TAKE WITH THE MEALS. MEALS. EVENING. TAKE WITH MEALS. tizanidine tizanidine No tizanidine Monae 4 mg 4 mg 4 mg [facility] capsule capsule capsule dic TAKE 1 TAKE 1 TAKE 1 Sports CAPSULE BY CAPSULE BY CAPSULE BY Medicin MOUTH EVERY MOUTH EVERY MOUTH e 6 HOURS 6 HOURS EVERY 6 HOURS Trulicity Trulicity No Trulicity Monae 0.75 mg/0.5 0.75 mg/0.5 0.75 O rthope mL mL mg/0.5 mL dic subcutaneou subcutaneou subcutaneo Sports s pen s pen us pen Medicin injector injector injector e INJECT 0.75 INJECT 0.75 INJECT MG UNDER MG UNDER 0.75 MG THE SKIN THE SKIN UNDER THE PER WEEK. PER WEEK. SKIN PER WEEK. Zanaflex 4 Zanaflex 4 No 1 Q6H Zanaflex 4 Monae mg tablet mg tablet mg tablet [facility] Take 1 Take 1 Take 1 dic tablet tablet tablet Sports every 6 every 6 every 6 Medici n hours by hours by hours by e oral route. oral route. oral route. celecoxib celecoxib No celecoxib Monae 400 mg 400 mg 400 mg [facility] capsule capsule capsule dic TAKE 1 TAKE 1 TAKE 1 Sports CAPSULE BY CAPSULE BY CAPSULE BY Medicin MOUTH EVERY MOUTH EVERY MOUTH e DAY DAY EVERY DAY diclofenac diclofenac No diclofenac Monae 1 % topical 1 % topical 1 % O rthope gel APPLY 2 gel APPLY 2 topical dic GRAMS TO GRAMS TO gel APPLY Sp orts THE THE 2 GRAMS TO Medicin AFFECTED AFFECTED THE e AREA(S) BY AREA(S) BY AFFECTED TOPICAL TOPICAL AREA(S) BY ROUTE 4 ROUTE 4 TOPICAL TIMES PER TIMES PER ROUTE 4 DAY DAY TIMES PER DAY FreeStyle FreeStyle No FreeStyle Monae Rosetta 3 Rosetta 3 Rosetta 3 Orthop e Sensor Sensor Sensor dic device 1 device 1 device 1 Spo rts UNITS EVERY UNITS EVERY UNITS Medicin 14 14 EVERY 14 e (FOURTEEN) (FOURTEEN) (FOURTEEN) DAYS. DAYS. DAYS. Janumet 50 Janumet 50 No Janumet 50 Monae mg-1,000 mg mg-1,000 mg mg-1,000 [facility] tablet TAKE tablet TAKE mg tablet dic 1 TABLET BY 1 TABLET BY TAKE 1 Sports MOUTH IN MOUTH IN TABLET BY Me dicin THE MORNING THE MORNING MOUTH IN e AND 1 AND 1 THE TABLET IN TABLET IN MORNING THE THE AND 1 EVENING. EVENING. TABLET IN TAKE WITH TAKE WITH THE MEALS. MEALS. EVENING. TAKE WITH MEALS. tizanidine tizanidine No tizanidine [facility] 4 mg 4 mg 4 mg [facility] capsule capsule capsule dic TAKE 1 TAKE 1 TAKE 1 Sports CAPSULE BY CAPSULE BY CAPSULE BY Medicin MOUTH EVERY MOUTH EVERY MOUTH e 6 HOURS. 6 HOURS. EVERY 6 HOURS. Trulicity Trulicity No Trulicity Monae 0.75 mg/0.5 0.75 mg/0.5 0.75 O rthope mL mL mg/0.5 mL dic subcutaneou subcutaneou subcutaneo Sports s pen s pen us pen Medicin injector injector injector e INJECT 0.75 INJECT 0.75 INJECT MG UNDER MG UNDER 0.75 MG THE SKIN THE SKIN UNDER THE PER WEEK. PER WEEK. SKIN PER WEEK. Zanaflex 4 Zanaflex 4 No 1 Q6H Zanaflex 4 Monae mg tablet mg tablet mg tablet [facility] Take 1 Take 1 Take 1 dic tablet tablet tablet Sports every 6 every 6 every 6 Medici n hours by hours by hours by e oral route. oral route. oral route. celecoxib celecoxib No celecoxib Monae 400 mg 400 mg 400 mg [facility] capsule capsule capsule dic TAKE 1 TAKE 1 TAKE 1 Sports CAPSULE BY CAPSULE BY CAPSULE BY Medicin MOUTH EVERY MOUTH EVERY MOUTH e DAY DAY EVERY DAY diclofenac diclofenac No diclofenac Monae 1 % topical 1 % topical 1 % O rthope gel APPLY 2 gel APPLY 2 topical dic GRAMS TO GRAMS TO gel APPLY Sp orts THE THE 2 GRAMS TO Medicin AFFECTED AFFECTED THE e AREA(S) BY AREA(S) BY AFFECTED TOPICAL TOPICAL AREA(S) BY ROUTE 4 ROUTE 4 TOPICAL TIMES PER TIMES PER ROUTE 4 DAY DAY TIMES PER DAY FreeStyle FreeStyle No FreeStyle Monae Rosetta 3 Rosetta 3 Rosetta 3 [facility] e Sensor Sensor Sensor dic device 1 device 1 device 1 Spo rts UNITS EVERY UNITS EVERY UNITS Medicin 14 14 EVERY 14 e (FOURTEEN) (FOURTEEN) (FOURTEEN) DAYS. DAYS. DAYS. Janumet 50 Janumet 50 No Janumet 50 Monae mg-1,000 mg mg-1,000 mg mg-1,000 [facility] tablet TAKE tablet TAKE mg tablet dic 1 TABLET BY 1 TABLET BY TAKE 1 Sports MOUTH IN MOUTH IN TABLET BY Me dicin THE MORNING THE MORNING MOUTH IN e AND 1 AND 1 THE TABLET IN TABLET IN MORNING THE THE AND 1 EVENING. EVENING. TABLET IN TAKE WITH TAKE WITH THE MEALS. MEALS. EVENING. TAKE WITH MEALS. ketorolac ketorolac No ketorolac Monae 10 mg 10 mg 10 mg [facility] tablet Take tablet Take tablet dic 1 tablet 1 tablet Take 1 Sport s every 6 every 6 tablet Medicin hours by hours by every 6 e oral route oral route hours by for 5 days. for 5 days. oral route for 5 days. promethazin promethazin No promethazi Monae e 25 mg e 25 mg ne 25 mg Orth[facility] pe tablet Take tablet Take tablet dic 1 tablet 1 tablet Take 1 Sport s every 6-8 every 6-8 tablet Med icin hours as hours as every 6-8 e needed for needed for hours as nausea and nausea and needed for vomiting vomiting nausea and vomiting tizanidine tizanidine No tizanidine Monae 4 mg 4 mg 4 mg [facility] capsule capsule capsule dic TAKE 1 TAKE 1 TAKE 1 Sports CAPSULE BY CAPSULE BY CAPSULE BY Medicin MOUTH EVERY MOUTH EVERY MOUTH e 6 HOURS. 6 HOURS. EVERY 6 HOURS. tizanidine tizanidine No tizanidine Monae 4 mg tablet 4 mg tablet 4 mg O rthope TAKE 1 TAKE 1 tablet dic TABLET(S) TABLET(S) TAKE 1 Spo rts EVERY 8 EVERY 8 TABLET(S) Medi johnie HOURS BY HOURS BY EVERY 8 e ORAL ROUTE ORAL ROUTE HOURS BY NEEDED NEEDED ORAL ROUTE FOR MUSCLE FOR MUSCLE NEEDED SPASMS SPASMS FOR MUSCLE SPASMS tramadol tramadol No tramadol Aza marla 37.5 37.5 37.5 [facility] mg-acetamin mg-acetamin mg-acetami dic ophen 325 ophen 325 nophen 325 Sports mg tablet mg tablet mg tablet Medicin Take 1 Take 1 Take 1 e tablet by tablet by tablet by mouth every mouth every mouth 4-6 hours 4-6 hours every 4-6 as needed as needed hours as for pain for pain needed for pain Trulicity Trulicity No Trulicity Monae 0.75 mg/0.5 0.75 mg/0.5 0.75 O rthope mL mL mg/0.5 mL dic subcutaneou subcutaneou subcutaneo Sports s pen s pen us pen Medicin injector injector injector e INJECT 0.75 INJECT 0.75 INJECT MG UNDER MG UNDER 0.75 MG THE SKIN THE SKIN UNDER THE PER WEEK. PER WEEK. SKIN PER WEEK. celecoxib celecoxib No celecoxib Monae 400 mg 400 mg 400 mg [facility] capsule capsule capsule dic TAKE 1 TAKE 1 TAKE 1 Sports CAPSULE BY CAPSULE BY CAPSULE BY Medicin MOUTH EVERY MOUTH EVERY MOUTH e DAY DAY EVERY DAY diclofenac diclofenac No diclofenac Monae 1 % topical 1 % topical 1 % O rthope gel APPLY 2 gel APPLY 2 topical dic GRAMS TO GRAMS TO gel APPLY Sp orts THE THE 2 GRAMS TO Medicin AFFECTED AFFECTED THE e AREA(S) BY AREA(S) BY AFFECTED TOPICAL TOPICAL AREA(S) BY ROUTE 4 ROUTE 4 TOPICAL TIMES PER TIMES PER ROUTE 4 DAY DAY TIMES PER DAY Janumet 50 Janumet 50 No Janumet 50 Monae mg-1,000 mg mg-1,000 mg mg-1,000 [facility] tablet TAKE tablet TAKE mg tablet dic 1 TABLET BY 1 TABLET BY TAKE 1 Sports MOUTH IN MOUTH IN TABLET BY Me dicin THE MORNING THE MORNING MOUTH IN e AND 1 AND 1 THE TABLET IN TABLET IN MORNING THE THE AND 1 EVENING. EVENING. TABLET IN TAKE WITH TAKE WITH THE MEALS. MEALS. EVENING. TAKE WITH MEALS. tizanidine tizanidine No tizanidine Monae 4 mg tablet 4 mg tablet 4 mg O rthope TAKE 1 TAKE 1 tablet dic TABLET(S) TABLET(S) TAKE 1 Spo rts EVERY 8 EVERY 8 TABLET(S) Medi johnie HOURS BY HOURS BY EVERY 8 e ORAL ROUTE ORAL ROUTE HOURS BY NEEDED NEEDED ORAL ROUTE FOR MUSCLE FOR MUSCLE NEEDED SPASMS SPASMS FOR MUSCLE SPASMS Trulicity Trulicity No Trulicity Monae 0.75 mg/0.5 0.75 mg/0.5 0.75 O r[facility]ope mL mL mg/0.5 mL dic subcutaneou subcutaneou subcutaneo Sports s pen s pen us pen Medicin injector injector injector e INJECT 0.75 INJECT 0.75 INJECT MG UNDER MG UNDER 0.75 MG THE SKIN THE SKIN UNDER THE PER WEEK. PER WEEK. SKIN PER WEEK. celecoxib celecoxib No celecoxib Monae 400 mg 400 mg 400 mg [facility] capsule capsule capsule dic TAKE 1 TAKE 1 TAKE 1 Sports CAPSULE BY CAPSULE BY CAPSULE BY Medicin MOUTH EVERY MOUTH EVERY MOUTH e DAY DAY EVERY DAY diclofenac diclofenac No diclofenac Monae 3 % topical 3 % topical 3 % O r[facility]ope gel APPLY 1 gel APPLY 1 topical dic GRAM TO GRAM TO gel APPLY Spor ts RIGHT RIGHT 1 GRAM TO Medicin SHOULDER SHOULDER RIGHT e THREE TIMES THREE TIMES SHOULDER A DAY A DAY THREE NEEDED FOR NEEDED FOR TIMES A PAIN PAIN DAY NEEDED FOR PAIN bromphenira bromphenira No bromphenir Monae mine-pseudo mine-pseudo amine-pseu [facility] ephedrine-D ephedrine-D doephedrin dic M 2 mg-30 M 2 mg-30 e-DM 2 Spo rts mg-10 mg/5 mg-10 mg/5 mg-30 Me dicin mL oral mL oral mg-10 mg/5 e syrup TAKE syrup TAKE mL oral 10 ML BY 10 ML BY syrup TAKE MOUTH 3 MOUTH 3 10 ML BY (THREE) (THREE) MOUTH 3 TIMES A DAY TIMES A DAY (THREE) IF NEEDED IF NEEDED TIMES A FOR FOR DAY IF CONGESTION CONGESTION NEEDED FOR OR COUGH. OR COUGH. CONGESTION OR COUGH. hydrocodone hydrocodone No 1 Q7H hydrocodon Monae 5 5 e 5 [facility] mg-acetamin mg-acetamin mg-acetami dic ophen 325 ophen 325 nophen 325 Sports mg tablet mg tablet mg tablet Medicin Take 1 Take 1 Take 1 e tablet tablet tablet every 6-8 every 6-8 every 6-8 hours by hours by hours by oral route oral route oral route as needed. as needed. as needed. hydrocodone hydrocodone No hydrocodon Monae 7.5 7.5 e 7.5 [facility] mg-acetamin mg-acetamin mg-acetami dic ophen 325 ophen 325 nophen 325 Sports mg tablet mg tablet mg tablet Medicin TAKE 1 TAKE 1 TAKE 1 e TABLET BY TABLET BY TABLET BY MOUTH EVERY MOUTH EVERY MOUTH 8 HOURS 8 HOURS EVERY 8 NEEDED NEEDED HOURS NEEDED Janumet 50 Janumet 50 No Janumet 50 Monae mg-1,000 mg mg-1,000 mg mg-1,000 [facility] tablet TAKE tablet TAKE mg tablet dic 1 TABLET BY 1 TABLET BY TAKE 1 Sports MOUTH IN MOUTH IN TABLET BY Me dicin THE MORNING THE MORNING MOUTH IN e AND 1 AND 1 THE TABLET IN TABLET IN MORNING THE THE AND 1 EVENING. EVENING. TABLET IN TAKE WITH TAKE WITH THE MEALS. MEALS. EVENING. TAKE WITH MEALS. Mobic 15 mg Mobic 15 mg No 1 Q1D Mobic 15 [facility] tablet Take tablet Take mg tablet [facility] 1 tablet 1 tablet Take 1 dic every day every day tablet Spo rts by oral by oral every day Medi johnie route in route in by oral e the the route in morning. morning. the morning. tizanidine tizanidine No tizanidine Monae 4 mg tablet 4 mg tablet 4 mg O r[facility]ope TAKE 1 TAKE 1 tablet dic TABLET(S) TABLET(S) TAKE 1 Spo rts EVERY 8 EVERY 8 TABLET(S) Medi johnie HOURS BY HOURS BY EVERY 8 e ORAL ROUTE ORAL ROUTE HOURS BY NEEDED NEEDED ORAL ROUTE FOR MUSCLE FOR MUSCLE NEEDED SPASMS SPASMS FOR MUSCLE SPASMS Trulicity Trulicity No Trulicity Monae 0.75 mg/0.5 0.75 mg/0.5 0.75 [facility]ope mL mL mg/0.5 mL dic subcutaneou subcutaneou subcutaneo Sports s pen s pen us pen Medicin injector injector injector e INJECT 0.75 INJECT 0.75 INJECT MG UNDER MG UNDER 0.75 MG THE SKIN THE SKIN UNDER THE PER WEEK. PER WEEK. SKIN PER WEEK. Voltaren Voltaren No Voltaren Aza marla Arthritis Arthritis Arthritis [facility] Pain 1 % Pain 1 % Pain 1 % dic topical gel topical gel topical Sports APPLY 2 APPLY 2 gel APPLY Medi johnie GRAMS TO GRAMS TO 2 GRAMS TO e THE THE THE AFFECTED AFFECTED AFFECTED AREA(S) BY AREA(S) BY AREA(S) BY TOPICAL TOPICAL TOPICAL ROUTE 4 ROUTE 4 ROUTE 4 TIMES PER TIMES PER TIMES PER DAY DAY DAY celecoxib celecoxib No celecoxib Monae 200 mg 200 mg 200 mg [facility] capsule capsule capsule dic TAKE 1 TAKE 1 TAKE 1 Sports CAPSULE BY CAPSULE BY CAPSULE BY Medicin ORAL ROUTE ORAL ROUTE ORAL ROUTE e IN THE IN THE IN THE MORNING. MORNING. MORNING. cephalexin cephalexin No cephalexin Monae 500 mg 500 mg 500 mg [facility] capsule capsule capsule dic TAKE 1 TAKE 1 TAKE 1 Sports CAPSULE BY CAPSULE BY CAPSULE BY Medicin MOUTH TWICE MOUTH TWICE MOUTH e A DAY FOR A DAY FOR TWICE A 10 DAYS 10 DAYS DAY FOR 10 DAYS celecoxib celecoxib No celecoxib Monae 400 mg 400 mg 400 mg [facility] capsule capsule capsule dic TAKE 1 TAKE 1 TAKE 1 Sports CAPSULE BY CAPSULE BY CAPSULE BY Medicin MOUTH EVERY MOUTH EVERY MOUTH e DAY DAY EVERY DAY diclofenac diclofenac No diclofenac Monae 3 % topical 3 % topical 3 % O r[facility]ope gel APPLY 1 gel APPLY 1 topical dic GRAM TO GRAM TO gel APPLY Spor ts RIGHT RIGHT 1 GRAM TO Medicin SHOULDER SHOULDER RIGHT e THREE TIMES THREE TIMES SHOULDER A DAY A DAY THREE NEEDED FOR NEEDED FOR TIMES A PAIN PAIN DAY NEEDED FOR PAIN FreeStyle FreeStyle No FreeStyle Monae Rosetta 3 Rosetta 3 Rosetta 3 [facility] e Sensor Sensor Sensor dic device 1 device 1 device 1 Spo rts UNITS EVERY UNITS EVERY UNITS Medicin 14 14 EVERY 14 e (FOURTEEN) (FOURTEEN) (FOURTEEN) DAYS. DAYS. DAYS. Janumet 50 Janumet 50 No Janumet 50 Monae mg-1,000 mg mg-1,000 mg mg-1,000 [facility] tablet TAKE tablet TAKE mg tablet dic 1 TABLET BY 1 TABLET BY TAKE 1 Sports MOUTH IN MOUTH IN TABLET BY Me dicin THE MORNING THE MORNING MOUTH IN e AND 1 AND 1 THE TABLET IN TABLET IN MORNING THE THE AND 1 EVENING. EVENING. TABLET IN TAKE WITH TAKE WITH THE MEALS. MEALS. EVENING. TAKE WITH MEALS. meloxicam meloxicam No meloxicam Monae 15 mg 15 mg 15 mg [facility] tablet TAKE tablet TAKE tablet dic 1 TABLET 1 TABLET TAKE 1 Sport s EVERY DAY EVERY DAY TABLET Med icin BY ORAL BY ORAL EVERY DAY e ROUTE IN ROUTE IN BY ORAL THE THE ROUTE IN MORNING. MORNING. THE MORNING. metformin metformin No metformin [place] ER 500 mg ER 500 mg ER 500 mg [facility] tablet,exte tablet,exte tablet,ext dic nded nded ended Sports release 24 release 24 release 24 Medicin hr PLEASE hr PLEASE hr PLEASE e SEE SEE SEE ATTACHED ATTACHED ATTACHED FOR FOR FOR DETAILED DETAILED DETAILED DIRECTIONS DIRECTIONS DIRECTIONS tizanidine tizanidine No tizanidine Monae 4 mg tablet 4 mg tablet 4 mg O r[facility]ope TAKE 1 TAKE 1 tablet dic TABLET(S) TABLET(S) TAKE 1 Spo rts EVERY 8 EVERY 8 TABLET(S) Medi johnie HOURS BY HOURS BY EVERY 8 e ORAL ROUTE ORAL ROUTE HOURS BY NEEDED NEEDED ORAL ROUTE FOR MUSCLE FOR MUSCLE NEEDED SPASMS SPASMS FOR MUSCLE SPASMS Trulicity Trulicity No Trulicity Monae 0.75 mg/0.5 0.75 mg/0.5 0.75 O [facility]ope mL mL mg/0.5 mL dic subcutaneou subcutaneou subcutaneo Sports s pen s pen us pen Medicin injector injector injector e INJECT 0.75 INJECT 0.75 INJECT MG UNDER MG UNDER 0.75 MG THE SKIN THE SKIN UNDER THE PER WEEK. PER WEEK. SKIN PER WEEK. Trulicity Trulicity No Trulicity Monae 1.5 mg/0.5 1.5 mg/0.5 1.5 mg/0.5 [facility] mL mL mL dic subcutaneou subcutaneou subcutaneo Sports s pen s pen us pen Medicin injector injector injector e INJECT 1.5 INJECT 1.5 INJECT 1.5 MG UNDER MG UNDER MG UNDER THE SKIN THE SKIN THE SKIN PER WEEK. PER WEEK. PER WEEK. Voltaren Voltaren No Voltaren Aza marla Arthritis Arthritis Arthritis [facility] Pain 1 % Pain 1 % Pain 1 % dic topical gel topical gel topical Sports APPLY 2 APPLY 2 gel APPLY Medi johnie GRAMS TO GRAMS TO 2 GRAMS TO e THE THE THE AFFECTED AFFECTED AFFECTED AREA(S) BY AREA(S) BY AREA(S) BY TOPICAL TOPICAL TOPICAL ROUTE 4 ROUTE 4 ROUTE 4 TIMES PER TIMES PER TIMES PER DAY DAY DAY cyclobenzap cyclobenzap No cyclobenza Monae rine 10 mg rine 10 mg aster 10 [facility] tablet TAKE tablet TAKE mg tablet dic 1 TABLET BY 1 TABLET BY TAKE 1 Sports MOUTH EVERY MOUTH EVERY TABLET BY Medicin 8 HOURS 8 HOURS MOUTH e NEEDED FOR NEEDED FOR EVERY 8 PAIN PAIN HOURS NEEDED FOR PAIN diazepam 10 diazepam 10 No diazepam Monae mg tablet mg tablet 10 mg Orth ope TAKE 1 TAKE 1 tablet dic TABLET BY TABLET BY TAKE 1 Spo rts MOUTH 30 MOUTH 30 TABLET BY Tx dicin MINS PRIOR MINS PRIOR MOUTH 30 e TO MRI TO MRI MINS PRIOR TO MRI diclofenac diclofenac No diclofenac Monae potassium potassium potassium [facility] 50 mg 50 mg 50 mg dic tablet TAKE tablet TAKE tablet Sports 1 TABLET BY 1 TABLET BY TAKE 1 Medicin MOUTH EVERY MOUTH EVERY TABLET BY e 8 HOURS 8 HOURS MOUTH WITH MEALS WITH MEALS EVERY 8 HOURS WITH MEALS etodolac etodolac No etodolac Aza marla 500 mg 500 mg 500 mg [facility] tablet TAKE tablet TAKE tablet dic 1 TABLET BY 1 TABLET BY TAKE 1 Sports MOUTH EVERY MOUTH EVERY TABLET BY Medicin TWELVE TWELVE MOUTH e HOURS HOURS EVERY NEEDED FOR NEEDED FOR TWELVE PAIN PAIN HOURS NEEDED FOR PAIN hydrocodone hydrocodone No hydrocodon Monae 5 5 e 5 [facility] mg-acetamin mg-acetamin mg-acetami dic ophen 325 ophen 325 nophen 325 Sports mg tablet mg tablet mg tablet Medicin TAKE 1 TAKE 1 TAKE 1 e TABLET BY TABLET BY TABLET BY MOUTH EVERY MOUTH EVERY MOUTH 6 HOURS 6 HOURS EVERY 6 NEEDED NEEDED HOURS NEEDED hydrocodone hydrocodone No hydrocodon Monae 7.5 7.5 e 7.5 [facility] mg-acetamin mg-acetamin mg-acetami dic ophen 325 ophen 325 nophen 325 Sports mg tablet mg tablet mg tablet Medicin TAKE 1 TAKE 1 TAKE 1 e TABLET BY TABLET BY TABLET BY MOUTH EVERY MOUTH EVERY MOUTH 12 HOURS 12 HOURS EVERY 12 NEEDED FOR NEEDED FOR HOURS PAIN PAIN NEEDED FOR PAIN Janumet 50 Janumet 50 No Janumet 50 Monae mg-1,000 mg mg-1,000 mg mg-1,000 [facility] tablet TAKE tablet TAKE mg tablet dic 1 TABLET BY 1 TABLET BY TAKE 1 Sports MOUTH IN MOUTH IN TABLET BY Me dicin THE MORNING THE MORNING MOUTH IN e AND 1 AND 1 THE TABLET IN TABLET IN MORNING THE THE AND 1 EVENING. EVENING. TABLET IN TAKE WITH TAKE WITH THE MEALS. MEALS. EVENING. TAKE WITH MEALS. meloxicam meloxicam No meloxicam Monae 7.5 mg 7.5 mg 7.5 mg [facility] tablet TAKE tablet TAKE tablet dic 1 TABLET BY 1 TABLET BY TAKE 1 Sports MOUTH EVERY MOUTH EVERY TABLET BY Medicin DAY WITH DAY WITH MOUTH e FOOD FOOD EVERY DAY WITH FOOD methocarbam methocarbam No methocarba Monae ol 750 mg ol 750 mg mol 750 mg [facility] tablet TAKE tablet TAKE tablet dic 1 TABLET BY 1 TABLET BY TAKE 1 Sports MOUTH EVERY MOUTH EVERY TABLET BY Medicin TWELVE TWELVE MOUTH e HOURS HOURS EVERY NEEDED FOR NEEDED FOR TWELVE PAIN PAIN HOURS NEEDED FOR PAIN methylpredn methylpredn No methylpred Monae isolone 4 isolone 4 nisolone 4 [facility] mg tablets mg tablets mg tablets dic in a dose in a dose in a dose Sports pack TAKE 6 pack TAKE 6 pack TAKE Medicin TABLETS ON TABLETS ON 6 TABLETS e DAY 1 DAY 1 ON DAY 1 DIRECTED ON DIRECTED ON PACKAGE AND PACKAGE AND DIRECTED DECREASE BY DECREASE BY ON PACKAGE 1 TAB EACH 1 TAB EACH AND DAY FOR A DAY FOR A DECREASE TOTAL OF 6 TOTAL OF 6 BY 1 TAB DAYS DAYS EACH DAY FOR A TOTAL OF 6 DAYS prednisone prednisone No prednisone Monae 10 mg 10 mg 10 mg [facility] tablet Take tablet Take tablet dic 1 tablet 3 1 tablet 3 Take 1 S ports times a day times a day tablet 3 Medicin by oral by oral times a e route. route. day by oral route. promethazin promethazin No promethazi Monae e 25 mg e 25 mg ne 25 mg [facility] pe tablet Take tablet Take tablet dic 1 tablet 1 tablet Take 1 Sport s every 6-8 every 6-8 tablet Med icin hours as hours as every 6-8 e needed for needed for hours as nausea and nausea and needed for vomiting vomiting nausea and vomiting tizanidine tizanidine No tizanidine Monae 4 mg tablet 4 mg tablet 4 mg O r[facility]ope Take 1 Take 1 tablet dic tablet(s) tablet(s) Take 1 Spo rts EVERY 8 EVERY 8 tablet(s) Medi johnie HOURS by HOURS by EVERY 8 e oral route oral route HOURS by as needed as needed oral route for muscle for muscle as needed spasms spasms for muscle spasms tramadol tramadol No tramadol Aza marla 37.5 37.5 37.5 [facility] mg-acetamin mg-acetamin mg-acetami dic ophen 325 ophen 325 nophen 325 Sports mg tablet mg tablet mg tablet Medicin Take 1 Take 1 Take 1 e tablet by tablet by tablet by mouth every mouth every mouth 4-6 hours 4-6 hours every 4-6 as needed as needed hours as for pain for pain needed for pain Trulicity Trulicity No Trulicity Monae 0.75 mg/0.5 0.75 mg/0.5 0.75 O r[facility]ope mL mL mg/0.5 mL dic subcutaneou subcutaneou subcutaneo Sports s pen s pen us pen Medicin injector injector injector e INJECT 0.75 INJECT 0.75 INJECT MG UNDER MG UNDER 0.75 MG THE SKIN THE SKIN UNDER THE PER WEEK. PER WEEK. SKIN PER WEEK. Voltaren Voltaren No Voltaren Aza marla Arthritis Arthritis Arthritis [facility] Pain 1 % Pain 1 % Pain 1 % dic topical gel topical gel topical Sports APPLY 2 APPLY 2 gel APPLY Medi johnie GRAMS TO GRAMS TO 2 GRAMS TO e THE THE THE AFFECTED AFFECTED AFFECTED AREA(S) BY AREA(S) BY AREA(S) BY TOPICAL TOPICAL TOPICAL ROUTE 4 ROUTE 4 ROUTE 4 TIMES PER TIMES PER TIMES PER DAY DAY DAY bromphenira bromphenira No bromphenir Monae mine-pseudo mine-pseudo amine-pseu [facility] ephedrine-D ephedrine-D doephedrin dic M 2 mg-30 M 2 mg-30 e-DM 2 Spo rts mg-10 mg/5 mg-10 mg/5 mg-30 Me dicin mL oral mL oral mg-10 mg/5 e syrup TAKE syrup TAKE mL oral 10 ML BY 10 ML BY syrup TAKE MOUTH 3 MOUTH 3 10 ML BY (THREE) (THREE) MOUTH 3 TIMES A DAY TIMES A DAY (THREE) IF NEEDED IF NEEDED TIMES A FOR FOR DAY IF CONGESTION CONGESTION NEEDED FOR OR COUGH. OR COUGH. CONGESTION OR COUGH. celecoxib celecoxib No celecoxib Monae 200 mg 200 mg 200 mg [facility] capsule capsule capsule dic TAKE 1 TAKE 1 TAKE 1 Sports CAPSULE BY CAPSULE BY CAPSULE BY Medicin ORAL ROUTE ORAL ROUTE ORAL ROUTE e IN THE IN THE IN THE MORNING. MORNING. MORNING. cephalexin cephalexin No cephalexin Monae 500 mg 500 mg 500 mg [facility] capsule capsule capsule dic TAKE 1 TAKE 1 TAKE 1 Sports CAPSULE BY CAPSULE BY CAPSULE BY Medicin MOUTH TWICE MOUTH TWICE MOUTH e A DAY FOR A DAY FOR TWICE A 10 DAYS 10 DAYS DAY FOR 10 DAYS cyclobenzap cyclobenzap No cyclobenza Monae rine 10 mg rine 10 mg aster 10 [facility] tablet TAKE tablet TAKE mg tablet dic 1 TABLET BY 1 TABLET BY TAKE 1 Sports MOUTH EVERY MOUTH EVERY TABLET BY Medicin 8 HOURS 8 HOURS MOUTH e NEEDED FOR NEEDED FOR EVERY 8 PAIN PAIN HOURS NEEDED FOR PAIN diazepam 10 diazepam 10 No diazepam Monae mg tablet mg tablet 10 mg Orth [facility]pe TAKE 1 TAKE 1 tablet dic TABLET BY TABLET BY TAKE 1 Spo rts MOUTH 30 MOUTH 30 TABLET BY Me dicin MINS PRIOR MINS PRIOR MOUTH 30 e TO MRI TO MRI MINS PRIOR TO MRI diclofenac diclofenac No diclofenac Monae 1 % topical 1 % topical 1 % O rthope gel APPLY 2 gel APPLY 2 topical dic GRAMS TO GRAMS TO gel APPLY Sp orts THE THE 2 GRAMS TO Medicin AFFECTED AFFECTED THE e AREA(S) BY AREA(S) BY AFFECTED TOPICAL TOPICAL AREA(S) BY ROUTE 4 ROUTE 4 TOPICAL TIMES PER TIMES PER ROUTE 4 DAY DAY TIMES PER DAY diclofenac diclofenac No diclofenac Monae potassium potassium potassium [facility] 50 mg 50 mg 50 mg dic tablet TAKE tablet TAKE tablet Sports 1 TABLET BY 1 TABLET BY TAKE 1 Medicin MOUTH EVERY MOUTH EVERY TABLET BY e 8 HOURS 8 HOURS MOUTH WITH MEALS WITH MEALS EVERY 8 HOURS WITH MEALS etodolac etodolac No etodolac Aza marla 500 mg 500 mg 500 mg [facility] tablet TAKE tablet TAKE tablet dic 1 TABLET BY 1 TABLET BY TAKE 1 Sports MOUTH EVERY MOUTH EVERY TABLET BY Medicin TWELVE TWELVE MOUTH e HOURS HOURS EVERY NEEDED FOR NEEDED FOR TWELVE PAIN PAIN HOURS NEEDED FOR PAIN hydrocodone hydrocodone No hydrocodon Monae 5 5 e 5 [facility] mg-acetamin mg-acetamin mg-acetami dic ophen 325 ophen 325 nophen 325 Sports mg tablet mg tablet mg tablet Medicin TAKE 1 TAKE 1 TAKE 1 e TABLET BY TABLET BY TABLET BY MOUTH EVERY MOUTH EVERY MOUTH 6 HOURS 6 HOURS EVERY 6 NEEDED NEEDED HOURS NEEDED hydrocodone hydrocodone No hydrocodon Monae 7.5 7.5 e 7.5 [facility] mg-acetamin mg-acetamin mg-acetami dic ophen 325 ophen 325 nophen 325 Sports mg tablet mg tablet mg tablet Medicin TAKE 1 TAKE 1 TAKE 1 e TABLET BY TABLET BY TABLET BY MOUTH EVERY MOUTH EVERY MOUTH 12 HOURS 12 HOURS EVERY 12 NEEDED FOR NEEDED FOR HOURS PAIN PAIN NEEDED FOR PAIN Janumet 50 Janumet 50 No Janumet 50 Monae mg-1,000 mg mg-1,000 mg mg-1,000 [facility] tablet TAKE tablet TAKE mg tablet dic 1 TABLET BY 1 TABLET BY TAKE 1 Sports MOUTH IN MOUTH IN TABLET BY Tx dicin THE MORNING THE MORNING MOUTH IN e AND 1 AND 1 THE TABLET IN TABLET IN MORNING THE THE AND 1 EVENING. EVENING. TABLET IN TAKE WITH TAKE WITH THE MEALS. MEALS. EVENING. TAKE WITH MEALS. meloxicam meloxicam No meloxicam Monae 7.5 mg 7.5 mg 7.5 mg [facility] tablet TAKE tablet TAKE tablet dic 1 TABLET BY 1 TABLET BY TAKE 1 Sports MOUTH EVERY MOUTH EVERY TABLET BY Medicin DAY WITH DAY WITH MOUTH e FOOD FOOD EVERY DAY WITH FOOD methocarbam methocarbam No methocarba Monae ol 750 mg ol 750 mg mol 750 mg [facility] tablet TAKE tablet TAKE tablet dic 1 TABLET BY 1 TABLET BY TAKE 1 Sports MOUTH EVERY MOUTH EVERY TABLET BY Medicin TWELVE TWELVE MOUTH e HOURS HOURS EVERY NEEDED FOR NEEDED FOR TWELVE PAIN PAIN HOURS NEEDED FOR PAIN methylpredn methylpredn No methylpred Monae isolone 4 isolone 4 nisolone 4 [facility] mg tablets mg tablets mg tablets dic in a dose in a dose in a dose Sports pack TAKE 6 pack TAKE 6 pack TAKE Medicin TABLETS ON TABLETS ON 6 TABLETS e DAY 1 DAY 1 ON DAY 1 DIRECTED ON DIRECTED ON PACKAGE AND PACKAGE AND DIRECTED DECREASE BY DECREASE BY ON PACKAGE 1 TAB EACH 1 TAB EACH AND DAY FOR A DAY FOR A DECREASE TOTAL OF 6 TOTAL OF 6 BY 1 TAB DAYS DAYS EACH DAY FOR A TOTAL OF 6 DAYS prednisone prednisone No prednisone Monae 10 mg 10 mg 10 mg [facility] tablet Take tablet Take tablet dic 1 tablet 3 1 tablet 3 Take 1 S ports times a day times a day tablet 3 Medicin by oral by oral times a e route. route. day by oral route. promethazin promethazin No promethazi Monae e 25 mg e 25 mg ne 25 mg [facility] pe tablet Take tablet Take tablet dic 1 tablet 1 tablet Take 1 Sport s every 6-8 every 6-8 tablet Med icin hours as hours as every 6-8 e needed for needed for hours as nausea and nausea and needed for vomiting vomiting nausea and vomiting tizanidine tizanidine No tizanidine Monae 4 mg tablet 4 mg tablet 4 mg O rthope Take 1 Take 1 tablet dic tablet(s) tablet(s) Take 1 Spo rts EVERY 8 EVERY 8 tablet(s) Medi johnie HOURS by HOURS by EVERY 8 e oral route oral route HOURS by as needed as needed oral route for muscle for muscle as needed spasms spasms for muscle spasms tramadol tramadol No tramadol Aza marla 37.5 37.5 37.5 [facility] mg-acetamin mg-acetamin mg-acetami dic ophen 325 ophen 325 nophen 325 Sports mg tablet mg tablet mg tablet Medicin Take 1 Take 1 Take 1 e tablet by tablet by tablet by mouth every mouth every mouth 4-6 hours 4-6 hours every 4-6 as needed as needed hours as for pain for pain needed for pain Trulicity Trulicity No Trulicity Monae 0.75 mg/0.5 0.75 mg/0.5 0.75 O rthope mL mL mg/0.5 mL dic subcutaneou subcutaneou subcutaneo Sports s pen s pen us pen Medicin injector injector injector e INJECT 0.75 INJECT 0.75 INJECT MG UNDER MG UNDER 0.75 MG THE SKIN THE SKIN UNDER THE PER WEEK. PER WEEK. SKIN PER WEEK. bromphenira bromphenira No bromphenir Monae mine-pseudo mine-pseudo amine-pseu [facility] ephedrine-D ephedrine-D doephedrin dic M 2 mg-30 M 2 mg-30 e-DM 2 Spo rts mg-10 mg/5 mg-10 mg/5 mg-30 Me dicin mL oral mL oral mg-10 mg/5 e syrup TAKE syrup TAKE mL oral 10 ML BY 10 ML BY syrup TAKE MOUTH 3 MOUTH 3 10 ML BY (THREE) (THREE) MOUTH 3 TIMES A DAY TIMES A DAY (THREE) IF NEEDED IF NEEDED TIMES A FOR FOR DAY IF CONGESTION CONGESTION NEEDED FOR OR COUGH. OR COUGH. CONGESTION OR COUGH. cephalexin cephalexin No cephalexin Monae 500 mg 500 mg 500 mg [facility] capsule capsule capsule dic TAKE 1 TAKE 1 TAKE 1 Sports CAPSULE BY CAPSULE BY CAPSULE BY Medicin MOUTH TWICE MOUTH TWICE MOUTH e A DAY FOR A DAY FOR TWICE A 10 DAYS 10 DAYS DAY FOR 10 DAYS cyclobenzap cyclobenzap No cyclobenza [facility]ae rine 10 mg rine 10 mg aster 10 Orthope tablet TAKE tablet TAKE mg tablet dic 1 TABLET BY 1 TABLET BY TAKE 1 Sports MOUTH EVERY MOUTH EVERY TABLET BY Medicin 8 HOURS 8 HOURS MOUTH e NEEDED FOR NEEDED FOR EVERY 8 PAIN PAIN HOURS NEEDED FOR PAIN diazepam 10 diazepam 10 No diazepam [facility] mg tablet mg tablet 10 mg Orth ope TAKE 1 TAKE 1 tablet dic TABLET BY TABLET BY TAKE 1 Spo rts MOUTH 30 MOUTH 30 TABLET BY Tx dicin MINS PRIOR MINS PRIOR MOUTH 30 e TO MRI TO MRI MINS PRIOR TO MRI diclofenac diclofenac No diclofenac [facility] potassium potassium potassium Orthope 50 mg 50 mg 50 mg dic tablet TAKE tablet TAKE tablet Sports 1 TABLET BY 1 TABLET BY TAKE 1 Medicin MOUTH EVERY MOUTH EVERY TABLET BY e 8 HOURS 8 HOURS MOUTH WITH MEALS WITH MEALS EVERY 8 HOURS WITH MEALS etodolac etodolac No etodolac Aza marla 500 mg 500 mg 500 mg Orthope tablet TAKE tablet TAKE tablet dic 1 TABLET BY 1 TABLET BY TAKE 1 Sports MOUTH EVERY MOUTH EVERY TABLET BY Medicin TWELVE TWELVE MOUTH e HOURS HOURS EVERY NEEDED FOR NEEDED FOR TWELVE PAIN PAIN HOURS NEEDED FOR PAIN hydrocodone hydrocodone No hydrocodon [facility]ae 5 5 e 5 Orthope mg-acetamin mg-acetamin mg-acetami dic ophen 325 ophen 325 nophen 325 Sports mg tablet mg tablet mg tablet Medicin TAKE 1 TAKE 1 TAKE 1 e TABLET BY TABLET BY TABLET BY MOUTH EVERY MOUTH EVERY MOUTH 6 HOURS 6 HOURS EVERY 6 NEEDED NEEDED HOURS NEEDED hydrocodone hydrocodone No hydrocodon Monae 7.5 7.5 e 7.5 Orthope mg-acetamin mg-acetamin mg-acetami dic ophen 325 ophen 325 nophen 325 Sports mg tablet mg tablet mg tablet Medicin TAKE 1 TAKE 1 TAKE 1 e TABLET BY TABLET BY TABLET BY MOUTH EVERY MOUTH EVERY MOUTH 12 HOURS 12 HOURS EVERY 12 NEEDED FOR NEEDED FOR HOURS PAIN PAIN NEEDED FOR PAIN Janumet 50 Janumet 50 No Janumet 50 Monae mg-1,000 mg mg-1,000 mg mg-1,000 Orthope tablet TAKE tablet TAKE mg tablet dic 1 TABLET BY 1 TABLET BY TAKE 1 Sports MOUTH IN MOUTH IN TABLET BY Tx dicin THE MORNING THE MORNING MOUTH IN e AND 1 AND 1 THE TABLET IN TABLET IN MORNING THE THE AND 1 EVENING. EVENING. TABLET IN TAKE WITH TAKE WITH THE MEALS. MEALS. EVENING. TAKE WITH MEALS. meloxicam meloxicam No meloxicam Monae 7.5 mg 7.5 mg 7.5 mg Orthope tablet TAKE tablet TAKE tablet dic 1 TABLET BY 1 TABLET BY TAKE 1 Sports MOUTH EVERY MOUTH EVERY TABLET BY Medicin DAY WITH DAY WITH MOUTH e FOOD FOOD EVERY DAY WITH FOOD methocarbam methocarbam No methocarba [facility] ol 750 mg ol 750 mg mol 750 mg Orthope tablet TAKE tablet TAKE tablet dic 1 TABLET BY 1 TABLET BY TAKE 1 Sports MOUTH EVERY MOUTH EVERY TABLET BY Medicin TWELVE TWELVE MOUTH e HOURS HOURS EVERY NEEDED FOR NEEDED FOR TWELVE PAIN PAIN HOURS NEEDED FOR PAIN methylpredn methylpredn No methylpred Monae isolone 4 isolone 4 nisolone 4 Orthope mg tablets mg tablets mg tablets dic in a dose in a dose in a dose Sports pack TAKE 6 pack TAKE 6 pack TAKE Medicin TABLETS ON TABLETS ON 6 TABLETS e DAY 1 DAY 1 ON DAY 1 DIRECTED ON DIRECTED ON PACKAGE AND PACKAGE AND DIRECTED DECREASE BY DECREASE BY ON PACKAGE 1 TAB EACH 1 TAB EACH AND DAY FOR A DAY FOR A DECREASE TOTAL OF 6 TOTAL OF 6 BY 1 TAB DAYS DAYS EACH DAY FOR A TOTAL OF 6 DAYS prednisone prednisone No prednisone [facility] 10 mg 10 mg 10 mg Orthope tablet Take tablet Take tablet dic 1 tablet 3 1 tablet 3 Take 1 S ports times a day times a day tablet 3 Medicin by oral by oral times a e route. route. day by oral route. promethazin promethazin No promethazi [facility] e 25 mg e 25 mg ne 25 mg Ortho pe tablet Take tablet Take tablet dic 1 tablet 1 tablet Take 1 Sport s every 6-8 every 6-8 tablet Med icin hours as hours as every 6-8 e needed for needed for hours as nausea and nausea and needed for vomiting vomiting nausea and vomiting tizanidine tizanidine No tizanidine Monae 4 mg tablet 4 mg tablet 4 mg O rthope Take 1 Take 1 tablet dic tablet(s) tablet(s) Take 1 Spo rts EVERY 8 EVERY 8 tablet(s) Medi johnie HOURS by HOURS by EVERY 8 e oral route oral route HOURS by as needed as needed oral route for muscle for muscle as needed spasms spasms for muscle spasms Vital Signs Vital Name Observation Time Observation Value Comments Source Height 2023-01-07 00:00:00 70 [in_i] [facility] BMI (Body Mass 2023-01-07 00:00:00 33.9 kg/m2 [facility] Body Weight 2023-01-07 00:00:00 236 [lb_av] [facility] Height 2022-12-10 00:00:00 70 [in_i] [facility] BMI (Body Mass 2022-12-10 00:00:00 33.9 kg/m2 [facility] Body Weight 2022-12-10 00:00:00 236 [lb_av] [facility] Height 2022-10-31 00:00:00 70 [in_i] [facility] BMI (Body Mass 2022-10-31 00:00:00 33.9 kg/m2 [facility] Body Weight 2022-10-31 00:00:00 236 [lb_av] [facility] Height 2022-10-03 00:00:00 70 [in_i] [facility] BMI (Body Mass 2022-10-03 00:00:00 33.9 kg/m2 [facility] Body Weight 2022-10-03 00:00:00 236 [lb_av] [facility] Height 2022-08-29 00:00:00 70 [in_i] [facility] BMI (Body Mass 2022-08-29 00:00:00 33.9 kg/m2 [facility] Body Weight 2022-08-29 00:00:00 236 [lb_av] [facility] Height 2022-04-17 00:00:00 70 [in_i] [facility] BMI (Body Mass 2022-04-17 00:00:00 33.9 kg/m2 [facility] Body Weight 2022-04-17 00:00:00 236 [lb_av] [facility] Procedures Procedure Date / Time Performing Clinician Source Performed Arthroscopy of Shoulder 2022-10-17 00:00:00 Bailey garcia [facility] MRI, shoulder, w/o 2022-08-29 00:00:00 [facility] contrast Sports Medicine XR, shoulder, 1 view 2022-06-18 00:00:00 [facility] Arthroscopy of Shoulder 2022-03-07 00:00:00 Bailey garcia [facility] Plan of Care Planned Activity Planned Date Details Comments Source Future Scheduled Test 2023-02-16 COVID-19 VACCINE [facility] 03:54:34 (#1) [code = COVID-19 VACCINE (#1)] Future Scheduled Test 2023-02-16 INFLUENZA VACCINE [facility] 03:54:34 [code = INFLUENZA VACCINE] Future Scheduled Test 2022-08-15 COVID-19 VACCINE [facility] 08:50:09 (#1) [code = COVID-19 VACCINE (#1)] Future Scheduled Test 2022-08-15 INFLUENZA VACCINE [facility] 08:50:09 [code = INFLUENZA VACCINE] Instructions [facility] Encounters Start End Encounter Admission Attending Care Care Encounter Source Date/Time Date/Time Type Type Clinicians Facility Department ID 2021-10-04 Outpatient [facility] [id number] Common 08:52:02 [facility] 2021-09-26 Outpatient [facility] [id number] Common 14:32:55 [facility] 2023-02-02 2023-02-02 Outpatient FOG_Burke_R AOSM AOSM [id number] Monae 00:00:00 00:00:00 Solitario [id number] [facility] 2023-02-02 2023-02-02 Outpatient FOG_Burke_R AOSM AOSM [id number] Monae 00:00:00 00:00:00 Solitario [id number] Orth[facility] pe [facility] Medic[facility] e 2023-02-02 2023-02-02 Outpatient [facility]OG_Burke_R AOSM AOSM [id number] Monae 00:00:00 00:00:00 Solitario [id number] Orth[facility] pe [facility] e 2023-02-02 2023-02-02 Outpatient FOG_Burke_R AOSM AOSM [id number] Monae 00:00:00 00:00:00 Solitario [id number] Orth[facility] pe [facility] Medic[facility] e 2023-02-02 2023-02-02 Outpatient FOG_Burke_R AOSM AOSM [id number] Monae 00:00:00 00:00:00 Solitario [id number] Orth[facility] pe [facility] Medic[facility] e 2023-01-23 2023-01-23 Outpatient FOG_Burke_R AOSM AOSM [id number] Monae 00:00:00 00:00:00 Solitario [id number] Ortho pe dic Sports Medicin e 2023-01-14 2023-01-14 Outpatient FOG_Burke_R AOSM AOSM [id number] Monae 00:00:00 00:00:00 Solitario [id number] Ortho pe dic Sports Medicin e 2023-01-07 2023-01-07 Kenyetta H [facility]OSM [place] - Ortho [id number] Monae 00:00:00 00:00:00 Sansushma, [place] - [place]ope PA: [address] [place] [address] , Ph. [phone] 2023-01-02 2023-01-02 Outpatient FOG_Burke_R AOSM AOSM [id number] Monae 00:00:00 00:00:00 Solitario [id number] Ortho pe dic Sports Medicin e 2022-12-18 2022-12-18 Outpatient FOG_Burke_R AOSM AOSM [id number] Monae 00:00:00 00:00:00 Solitario [id number] Ortho pe dic Sports Medicin e 2022-12-10 2022-12-10 Outpatient FOG_Burke_R AOSM AOSM [id number] Monae 00:00:00 00:00:00 Solitario [id number] Ortho pe dic Sports Medicin e 2022-12-10 2022-12-10 Woo L AOSM [place] - Ortho Monae 00:00:00 00:00:00 MD Matt: [place] - Orthope [address] [facility] [address] , Ph. [phone] 2022-11-18 2022-11-18 Kenyetta H AOSM [place] - Ortho 20 Monae 00:00:00 00:00:00 Lillian Haley [place] - [place]: [address] [place] [address] , Ph. [phone] 2022-11-05 2022-11-05 Outpatient FOG_Burke_R AOSM AOSM [id number] Monae 00:00:00 00:00:00 Solitario [id number] Ortho pe dic Sports Medicin e 2022-11-05 2022-11-05 Outpatient FOG_Burke_R AOSM AOSM [id number] Monae 00:00:00 00:00:00 Solitario [id number] Ortho pe dic Sports Medicin e 2022-10-31 2022-10-31 Woo Jimenez [place] - Ortho [id number] Monae 00:00:00 00:00:00 MD Matt: Lillian Avila [address] [facility] [employer] [address] [address], [place] [address] , Ph. [phone] 2022-10-28 2022-10-28 Outpatient FOG_Burke_R AOSM AOSM [id number] Monae 00:00:00 00:00:00 Solitario [id number] Ortho pe dic Sports Medicin e 2022-10-28 2022-10-28 Outpatient FOG_Burke_R AOSM AOSM [id number] Monae 00:00:00 00:00:00 Solitario [id number] Ortho pe dic Sports Medicin e 2022-10-28 2022-10-28 Outpatient FOG_Burke_R AOSM AOSM [id number] Monae 00:00:00 00:00:00 Solitario [id number] Ortho pe dic Sports Medicin e 2022-10-17 2022-10-17 Outpatient ANABEL Gutierrez [facility] [id number] [facility] 08:10:00 08:10:00 [facility]oo [facility] 2022-10-16 2022-10-16 Outpatient FOG_Burke_R AOSM AOSM [id number] Monae 00:00:00 00:00:00 Solitario [id number] Ortho pe dic Sports Medicin e 2022-10-10 2022-10-10 Outpatient FOG_Burke_R AOSM AOSM [id number] Monae 00:00:00 00:00:00 Solitario [id number] Ortho pe dic Sports Medicin e 2022-10-03 2022-10-03 Woo QUINONES [place] - Ortho Monae 00:00:00 00:00:00 MD Matt: Lillian Toure Orthopjacques [address] [facility] [address], [place] [address] , Ph. [phone] 2022-09-09 2022-09-09 Outpatient FOG_Burke_R AOSM AOSM [id number] Monae 00:00:00 00:00:00 Solitario [id number] Ortho pe dic Sports Medicin e 2022-09-09 2022-09-09 Outpatient FOG_Burke_R AOSM AOSM [id number] Monae 00:00:00 00:00:00 Solitario [id number] Ortho pe dic Sports Medicin e 2022-09-04 2022-09-04 Outpatient FOG_Burke_R AOSM AOSM [id number] Monae 00:00:00 00:00:00 Solitario [id number] Ortho pe dic Sports Medicin e 2022-09-04 2022-09-04 Kenyetta H AOSM [place] - Ortho Monae 00:00:00 00:00:00 Lililan Haley PA: [address] [place] [address] , Ph. [phone] 2022-08-29 2022-08-29 Outpatient FOG_Burke_R AOSM AOSM [id number] Monae 00:00:00 00:00:00 Solitario [id number] Ortho pe dic Sports Medicin e 2022-08-29 2022-08-29 Outpatient FOG_Burke_R AOSM AOSM [id number] Monae 00:00:00 00:00:00 Solitario [id number] Ortho pe dic Sports Medicin e 2022-08-29 2022-08-29 Woo L AOSM [place] - Ortho [id number] Monae 00:00:00 00:00:00 MD Matt: Lillian Avila [address] FOG_Ofc dic [facility] [address] , Ph. [phone] 2022-07-29 2022-07-29 Outpatient FOG_Burke_R AOSM AOSM [id number] Monae 00:00:00 00:00:00 Solitario [id number] Ortho pe dic Sports Medicin e 2022-07-29 2022-07-29 Kenyetta H AOSM [place] - Ortho [id number] Monae 00:00:00 00:00:00 Lillian Haley PA: [address] FOG_Ofc dic [facility] A, [place] [address] , Ph. [phone] 2022-07-12 2022-07-12 Outpatient FOG_Burke_R AOSM AOSM [id number] Monae 00:00:00 00:00:00 Solitario [id number] Ortho pe dic Sports Medicin e 2022-07-09 2022-07-09 Outpatient FOG_Burke_R AOSM AOSM [id number] Monae 00:00:00 00:00:00 Solitario [id number] Ortho pe dic Sports Medicin e 2022-07-09 2022-07-09 Woo Jimenez [place]OSM [place] - Ortho [id number] Monae 00:00:00 00:00:00 MD Matt: Lillian Celis - Orthopjacques [address] FOG_Ofc dic [facility] A, [facility] [place] [address] , Ph. [phone] 2022-06-25 2022-06-25 Outpatient FOG_Burke_R AOSM AOSM [id number] Monae 00:00:00 00:00:00 Solitario [id number] Ortho pe dic Sports Medicin e 2022-06-18 2022-06-18 Outpatient FOG_Burke_R AOSM AOSM [id number] Monae 00:00:00 00:00:00 Solitario [id number] Ortho pe dic Sports Medicin e 2022-06-18 2022-06-18 Woo Jimenez [facility] [place] - Ortho Monae 00:00:00 00:00:00 MD Matt: Lillian Celis - Orthopjacques [address] FOG_Ofc dic [facility] A, [facility] [place] [address] , Ph. [phone] 2022-05-22 2022-05-22 Outpatient FOG_Burke_R AOSM AOSM [id number] Monae 00:00:00 00:00:00 Solitario [id number] Ortho pe dic Sports Medicin e 2022-05-22 2022-05-22 Woo Jimenez [facility] [place] - Ortho Monae 00:00:00 00:00:00 MD Matt: Lillian Celis - Orthope [address] [facility] [address], Medicin [place], [facility] [address] , Ph. [phone] 2022-04-17 2022-04-17 Outpatient FOG_Burke_R AOSM AOSM [id number] Monae 00:00:00 00:00:00 Solitario [id number] Ortho pe dic Sports Medicin e 2022-04-17 2022-04-17 Woo Jimenez [place] [place] - Ortho Monae 00:00:00 00:00:00 MD Matt: [place] - Orthope [address] [facility] [employer] [facility] A, [place] [address] , Ph. [phone] 2022-04-17 2022-04-17 Outpatient Gutierrez, AOSM AOSM [id number] 00:00:00 00:00:00 Woo Jimenez [id number] 2022-04-01 2022-04-01 Outpatient FOG_Burke_R AOSM AOSM [id number] Monae 00:00:00 00:00:00 Solitario [id number] Ortho pe dic Sports Medicin e 2022-03-18 2022-03-18 Outpatient FOG_Burke_R AOSM AOSM [id number] Monae 02:53:00 02:53:00 Solitario [id number] Ortho pe dic Sports Medicin e 2022-03-18 2022-03-18 Outpatient Gutierrez, AOSM AOSM [id number] 00:00:00 00:00:00 Woo Jimenez [id number] 2022-03-18 2022-03-18 Woo MARTINEZSM [place] - Ortho 18 Monae 00:00:00 00:00:00 MD Matt: Lillian Celis - Orthopjacques [address] FOG_Ofc dic [place], [place] [address], [place] [address] , Ph. [phone] 2022-03-11 2022-03-11 Outpatient FOG_Burke_R AOSM AOSM [id number] Monae 09:11:00 09:11:00 Solitario [id number] Ortho pe dic Sports Medicin e 2022-03-11 2022-03-11 Outpatient FOG_Burke_R AOSM AOSM [id number] Monae 09:11:00 09:11:00 Solitario [id number] Ortho pe dic Sports Medicin e 2022-03-07 2022-03-07 Outpatient FOG_Burke_R AOSM AOSM [id number] [id number] Monae 11:50:00 11:50:00 Solitario [id number] Ortho pe dic Sports Medicin e 2022-03-07 2022-03-07 Outpatient LEO Renee DAYS [id number] [facility] 07:15:00 07:15:00 Woo [facility] [place] [facility] 2022-03-07 2022-03-07 [facility] [id number] [facility] 07:15:00 07:15:00 Woo [id number] [place] [facility] Results Test Description Test Time Test Comments Results Result Comments Source GLUBED 2022-10-17 08:56:00 Test Item Value Reference Range Interpretation Comme nts GLUBED (test code = GLUBED) 143 mg/dL 60-125 H [id number] 08:45:00 Test Item Value Reference Range Interpretation Comments glubed (test code = glubed) 143 mg/dL 60-125 H performing lab: (test code = performing lab:) [facility] [id number] 09:05:00 Test Item Value Reference Range Interpretation Comments GLUBED (test code = GLUBED) 195 mg/dL 60-125 H [id number] 08:52:00 Test Item Value Reference Range Interpretation Comments glubed (test code = glubed) 195 mg/dL 60-125 H performing lab: (test code = performing lab:) [facility] Notes Date/Time Note Provider Source 2022-10-17 13:36:00-00:00 [id number] [place] [address] PATIENT NAME: CHRIS LYNN ADMIT DATE: 10/17 ACCOUNT NO: [id number] ROOM NO: AGE: 42 REPORT TYPE: OPERATIVE REPORT SEX: M ADMITTING PHYSICIAN: ATTENDING PHYSICIAN:Woo Gutierrez MD OPERATION DATE: 10/17/2022 PREOPERATIVE DIAGNOSIS: Right shoulder adhesive capsulitis. POSTOPERATIVE DIAGNOSIS: Right shoulder adhesive capsulitis. PROCEDURES: Right shoulder diagnostic arthroscop y with arthroscopic lysis of adhesions, 04780. SURGEON: Woo Gutierrez MD EMERGENCY SERVICES DISPATCHER: Kenyetta Haley PA-C ANESTHESIA: General. ESTIMATED BLOOD LOSS: None. OPERATIVE FINDINGS: As above. SURGICAL SPECIMENS SENT: None. CLINICAL INDICATIONS: Mr. Lynn is a 42-yea r-old male from [place], [place], who has developed adhesive capsulitis aft er going an arthroscopic decompression with distal clavicle resection and cuff repair. He has had no response to appropriate phys ical therapy. He is admitted for arthroscopic lysis of adhesions. OPERATIVE NARRATIVE: RIGHT SHOULDER DIAGNOSTIC A RTHROSCOPY WITH ARTHROSCOPIC LYSIS OF ADHESIONS, 23314. Mr. Lynn was brought t o the operative suite at which time he was placed in supine position on the OR table. Routine monitor s were established. General anesthesia was delivered. After satisfactory ind uction of general anesthesia, the patient was placed in a semi-Sebastian position per Ms. Haley and the right shoulder was circumferentially prepped a nd draped in the usual sterile fashion per Ms. Haley. Posterior arthroscopic portal wa s established. Systematic intra-articular evaluation performed. Glenohumer al evaluation revealed contracture and synovitis in rotator interval. T his was released and debrided utilizing a synovial resector and electrocautery . No chondral pathology was noted. Bicipital tendon was intact. Articular quinones rface of the cuff was intact. Axillary recess revealed no loose bodies. The ar throscope was then placed in the subacromial space. Significant subacromial a dhesions were present. These PATIENT NAME: CHRIS LYNN [id number] were debrided completely utilizing a synovial re sector. The previous cuff repair had healed anatomically. No impingement w as seen. At this time, the shoulder was put through gentle range of motion, essentially full range of motion was noted at this time. Subacromial space was thoroughly lavaged with lactated Ringer's solution. Subacromial anesthet ic injection was performed. Arthroscopic portals were closed with 4- 0 nylon suture per Ms. Haley. Sterile dressing was applied by Ms. Haley. The patient was then extubated and taken to recovery room awake and aler t without any anesthetic or operative complications. At the end of the case, sponge and needle count s were correct x2. During the procedure, Ms. Sa avendano was invaluable in positioning the patient along with preparation and draping of the extremity. Marisela vasquez was also responsible providing surgical exposure throughout t he procedure in addition to closure of the postoperative incisions and application of postoperative dressing as well as subacromial anesthetic injection. Dictated By: Woo Gutierrez MD Date Dictated: 10/17/2022 13:36:51 Date Transcribed: 10/17/2022 14:57:56 RLNakul/MEAGAN Receipt ID: [id number] Authenticated by Woo Gutierrez MD On 06:26:54 AM Electronically Signed by Woo Gutierrez MD on 0 10/18/22 at 0626 PATIENT NAME: CHRIS LYNN [id number] 2022-10-17 06:49:00-00:00 [facility] Brief Op Note REPORT#:[id number] REPORT STATUS: Signed DATE:10/17/22 TIME: 06 PATIENT: CHRIS LYNN UNIT #: [id number] ROOM/BED: : 79 AGE: 42 SEX: M ATTEND: Gabe Gutierrez MD ADM AUTHOR: Kenyetta Haley * ALL edits or amendments must be made on the el ectronic/computer document * Op/Inv Proc Note - Brief Pre-procedure diagnosis: Right shoulder adhesive capsulitis Post-procedure diagnosis: same as pre procedure dx Procedures performed: Right shoulder arthroscopy, lysis of adhesions Primary Surgeon: Matt Supervisor [employer]ting [employer](s): Tera ELIZABETH Findings: as above Complications: none Estimated blood loss in ml's: none Specimens removed/altered: none Electronically Signed by Kenyetta Haley on 0 10/17/22 at 1152 Electronically Signed by Woo Gutierrez MD on at 1615 [facility] #:[id number] END OF REPORT 2022-10-15 16:31:00-00:00 [id number] [facility] [address] [place] [address] PATIENT NAME: CHRIS LYNN ADMIT DATE: ACCOUNT NO: [id number] ROOM NO: AGE: 42 REPORT TYPE: HISTORY AND PHYSICAL SEX: M ADMITTING PHYSICIAN: ATTENDING PHYSICIAN:Woo Gutierrez MD ADMISSION DATE: 10/17/2022 10:30:00 ADMITTING DIAGNOSIS: Right shoulder adhesive cap sulitis. HISTORY OF PRESENT ILLNESS: Mr. Welch is a 42-year-old male who has had a previous rotator cuff repair , decompression and distal clavicular resection. He has developed postoperative adhesive cap sulitis, which is not improved despite extensive nonoperative intervention. Due to his progressive loss of motion and lack of response to nonoperative treatment, Mr. Lynn is admitted for diagnostic arthroscopy with an arthroscopic lysi s of adhesions. PAST MEDICAL HISTORY: Unremarkable. PAST SURGICAL HISTORY: Includes a right shoulder arthroscopic cuff repair. FAMILY HISTORY: Unremarkable. SOCIAL HISTORY: He does not smoke nor does he dr ink. ALLERGIES: NO ALLERGIES ARE LISTED. MEDICATIONS: Consist of Janumet and Trulicity. REVIEW OF SYSTEMS: Negative. PHYSICAL EXAMINATION: VITAL SIGNS: He is 5 feet 2 inches tall, 109 kg. HEENT: Within normal limits. HEART: Regular rate and rhythm. No murmur. CHEST: Clear. ABDOMEN: Benign. BACK: No CVA tenderness. EXTREMITIES: Examination of the right shoulder r evealed well-healed arthroscopic portals. He has limited active and passive motion. He has no weakness. His distal neurovascular status is in tact. IMAGING: Radiographic evaluation revealed postsu rgical changes from prior decompression and distal clavicular resection. M RI evaluation post-surgery demonstrates tendinopathy of the rotator cuff with no tearing type 1 acromion, thickening of the capsule compatible with adhesi ve capsulitis. ASSESSMENT: Right shoulder adhesive capsulitis. PATIENT NAME: CHRIS LYNN [id number] PLAN: Surgical plan will be to proceed with diag nostic arthroscopy with arthroscopic lysis of adhesi ons. I have gone over at length with Mr. Lynn the associated risks involved with this procedur e. He understands that these risks include, but not limited to bleeding, infe ction, neurovascular damage, persistent pain, loss of mot ion, failure to regain more motion, need for further surgical intervention along with complications secondary to anesthesia. Mr. Lynn further understands t hat there are absolutely no guarantees or warranties that he will be pain free as a result of the procedure. He accepts these risks and gives his informed consent to proceed. Dictated By: Woo Gutierrez MD Date Dictated: 10/15/2022 16:31:47 Date Transcribed: 10/15/2022 19:00:03 RLB/VSR Receipt ID: [id number] Authenticated by Woo Gutierrez MD On 02:52:00 PM at 0252 PATIENT NAME: CHRIS LYNN [id number] [id number] 10:54:00-00:00 [id number] [place] [address] PATIENT NAME: CHRIS LYNN ADMIT DATE: 03/22 ACCOUNT NO: [id number] ROOM NO: AGE: 41 REPORT TYPE: OPERATIVE REPORT SEX: M ADMITTING PHYSICIAN: ATTENDING PHYSICIAN:Woo Gutierrez MD OPERATION DATE: 03/07/2022 PREOPERATIVE DIAGNOSES: 1. Right shoulder rotator cuff tendon tear. 2. Right shoulder bicipital tenosynovitis. 3. Right shoulder stage III impingement. 4. Right shoulder acromioclavicular arthropathy. POSTOPERATIVE DIAGNOSES: 1. Interstitial tear, bursal surface, rotator cu ff tendon, right shoulder, M75.121. 2. Stage III impingement, right shoulder, M75.41 . 3. Acromioclavicular arthritis, right shoulder, M19.011. OPERATIVE PROCEDURES PERFORMED: 1. Right shoulder diagnostic arthroscopy with an arthroscopic rotator cuff tendon repair, 23169. 2. Arthroscopic subacromial decompression, 15615 . 3. Arthroscopic distal clavicle resection, 60001 . SURGEON: Woo Gutierrez M.D. SAND SCREENER OPERATOR: DASH Alonzo. OPERATIVE FINDINGS: As above. SURGICAL SPECIMEN SENT: None. CLINICAL INDICATIONS: Mr. Lynn is a 41-yea r-old male from [place], [place], who has been suffering from progressive s houlder pain for the past several months. Pain awakens him at night. Pain affects overhead activities. His pain has been refractory to extensive nonoperative intervention. Due to his progressive disability and lack of response to n onoperative treatment, he is admitted for arthroscopy, de compression, distal clavicle resection, cuff repair, and potential biceps tenodesis. OPERATIVE NARRATIVE: 1. RIGHT SHOULDER DIAGNOSTIC ARTHROSCOPY WITH AN ARTHROSCOPIC ROTATOR CUFF TENDON REPAIR, 63143. 2. ARTHROSCOPIC SUBACROMIAL DECOMPRESSION, 16848 . 3. ARTHROSCOPIC DISTAL CLAVICLE RESECTION, 83841 . PATIENT NAME: CHRIS LYNN [id number] Mr. Lynn was brought into the operative quinones ite. At which time, he was placed in supine position on the OR table. Routi ne monitors were established. General anesthesia was delivered. After satisfa ctory induction of general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
[2023-04-05] MEDS ORDERED: HYDROCODONE/APAP 5/325 MG TAB ONE (12:42)
[2023-04-05] MEDS ORDERED: IBUPROFEN 200 MG TAB PO ONE (12:43)
[2023-04-05] MEDS ORDERED: IBUPROFEN 400 MG TAB ONE (12:43)
[2023-04-05] MEDS ORDERED: methocarbamoL 500 MG TAB ONE (12:43)
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
[2023-04-05 13:59] VITALS: TEMP 98; O2SAT 100
[2023-04-05 14:01] VITALS: BP 118/88
== END 2023-04-05 13:54 | disposition home or self-care (01) ==
LOC: ER 12:03
DX: S16.1XXA Strain of muscle, fascia and tendon at neck level, initial encounter (principal); S46.012A Strain of muscle(s) and tendon(s) of the rotator cuff of left shoulder, initial encounter; R07.89 Other chest pain; V49.49XA Driver injured in collision with other motor vehicles in traffic accident, initial encounter; E11.9 Type 2 diabetes mellitus without complications
CPT/HCPCS: 70450; 71045; 72125; 99284